=== PATIENT | female | born 2000 | race Caucasian/White ===

== ENCOUNTER 2019-09-12 20:05 | Outpatient (CLI) | payer MEDICAID, SELFPAY ==
[2019-09-12] VITALS (18 sets, daily range): BP systolic 0–146; BP diastolic 0–87; PULSE 78–102; RESP 16–20; TEMP 36.6–36.7; BMI 31.9
[2019-09-12 20:47] LABS: Add Urine Microscopic? NO
[2019-09-12] MEDS: acetaminophen 500 mg Tablet 1000 MG PO (21:03)
[2019-09-12 21:24] LABS: Bilirubin Urine Neg (NEGATIVE); Blood Urine Neg (Negative); Glucose Urine UA Norm (Normal); Ketones Urine Negative (Negative); Leukocyte Esterase Urine Negative (Negative); Nitrate Urine Negative (Negative); Protein Urine Neg (Negative); Specific Gravity, Urine 1.005 (1.005-1.030); Urine Appearance Clear (CLEAR); Urine Color Yellow (Yellow); Urobilinogen Urine Norm (Negative); pH Urine 7 (5-7)
[2019-09-12 22:04] LABS: Urine Creatinine 26 mg/dL (28-217); Urine Protein Random 4 mg/dL
[2019-09-12 22:09] LABS: UPRO/UCREAT Ratio 0.15 mg/mg CR
== END 2019-09-12 22:22 | disposition home or self-care (01) ==
LOC: OPOB 20:24 → OBGYN 22:00 → OPOB 09-13 08:22
PROVIDERS: Family Provider Family Medicine; PCP Family Medicine; Visit Provider Family Medicine
DX: O26.899 Other specified pregnancy related conditions, unspecified trimester (principal); Z3A.00 Weeks of gestation of pregnancy not specified; R51 Headache
CPT/HCPCS: 59025; 81003; 82570; 84156; 99211; A9270

== ENCOUNTER 2019-09-15 17:51 | Outpatient (CLI) | payer MEDICAID, SELFPAY ==
[2019-09-15 18:06] VITALS: BP 142/80; PULSE 88
[2019-09-15 18:09] VITALS: BMI 33.7
[2019-09-15 18:21] VITALS: BP 145/84; PULSE 101
--- NOTE | 2019-09-15 18:25 | PC.NURSE ---
Nurse at bedside at this time. The nurse asked pt about headache. Pt stated head is hurting about a 5 to 6 on 0-10 scale. Nurse palpated pt's abdomen and pt stated it did not hurt with palpation and stated it was hurting right above pubic bone as well. RN asked pt if she was having pain anywhere else and pt stated no. RN updated pt on plan of care.
[2019-09-15 18:30] LABS: Add Urine Microscopic? NO
[2019-09-15 18:35] VITALS: RESP 16; TEMP 36.8
[2019-09-15 18:36] VITALS: BP 130/85; PULSE 91
[2019-09-15 18:36] LABS: Bilirubin Urine Neg (NEGATIVE); Blood Urine Neg (Negative); Glucose Urine UA Norm (Normal); Ketones Urine Negative (Negative); Leukocyte Esterase Urine Negative (Negative); Nitrate Urine Negative (Negative); Protein Urine Neg (Negative); Specific Gravity, Urine 1.005 (1.005-1.030); Urine Appearance Clear (CLEAR); Urine Color Straw (Yellow); Urobilinogen Urine Norm (Negative); pH Urine 7 (5-7)
[2019-09-15 18:45] VITALS: BP 130/85; PULSE 91; RESP 16; TEMP 36.8
[2019-09-15] MEDS: acetaminophen 500 mg Tablet 1000 MG PO (18:49)
== END 2019-09-15 18:50 | disposition home or self-care (01) ==
LOC: OPOB 18:01 → OBGYN 18:45 → OPOB 09-16 07:46
PROVIDERS: Family Provider Family Medicine; PCP Family Medicine; Visit Provider Family Medicine
DX: O16.9 Unspecified maternal hypertension, unspecified trimester (principal); Z3A.00 Weeks of gestation of pregnancy not specified
CPT/HCPCS: 81003; 99211

== ENCOUNTER 2019-09-18 18:35 | Outpatient (CLI) | payer MEDICAID, SELFPAY ==
[2019-09-18 18:55] VITALS: BP 145/78; PULSE 96; TEMP 36.8
[2019-09-18 19:00] VITALS: BMI 32.1
[2019-09-18 19:12] LABS: Nitrazine Paper, PH Inconclusive
[2019-09-18 19:28] LABS: Actim Prom Negative
[2019-09-18 19:34] VITALS: BP 134/75; PULSE 87
[2019-09-18 19:50] VITALS: BP 134/75; PULSE 87; RESP 16; TEMP 36.8
== END 2019-09-18 19:52 | disposition home or self-care (01) ==
LOC: OPOB 18:46 → OBGYN 19:44 → OPOB 09-20 07:40
PROVIDERS: Family Provider Family Medicine; PCP Family Medicine; Visit Provider Family Medicine
DX: O26.899 Other specified pregnancy related conditions, unspecified trimester (principal); Z3A.00 Weeks of gestation of pregnancy not specified; N89.8 Other specified noninflammatory disorders of vagina
CPT/HCPCS: 59025; 83986; 84112; 99211

== ENCOUNTER 2019-10-09 14:13 | Emergency (ER) | payer MEDICAID, SELFPAY ==
[2019-10-09 14:20] VITALS: BMI 33.4
--- NOTE | 2019-10-09 14:20 | ED_ITS ---
Entered by Nettie Espinosa, acting as scribe for JuanPau HPI - Chest Pain General: Chief Complaint: Chest Pain Stated Complaint: cp Time Seen by Provider: 10/09/19 14:19 Source: patient, family and RN notes reviewed Mode of arrival: ambulatory Limitations: no limitations History of Present Illness: HPI narrative: 19 yo female presents to ED from OB floor with complaints of chest pain. The patient states this began about 45 minutes ago (1345). She said it feels like someone hit her in the chest. She said the pain is worse with deep breathing. She said this is the first time this has happened. She said she did experience shortness of breath with the pain. She denies fever and cough. The patient is 38 weeks and this is her first . The pain is not reproducible. She said she quit smoking. She said she has been swelling with and Dr Burrows is her OB. She has had HTN last couple of visits. She has no chronic medical problems and has had no surgeries. MD complaint: chest pain Onset (ago): minute(s) (45 (1345)) Timing of current episode: constant and still present Prior episodes: No Onset: during rest Pain location: substernal Pain radiation: none Severity: moderate Quality: sharp Relieving factors: nothing Exacerbating factors: nothing Context: other () Associated symptoms: Reports dyspnea; Deny abdominal pain, diaphoresis, fever(s), nausea, palpitations, syncope or vomiting Treatment prior to arrival: none Risk Factors: Coronary artery disease risk factors: none Thoracic aortic dissection risk factors: none Pulmonary embolism risk factors: (38 weeks) Related Data: On Oral Contraceptives: No Review of Systems General: Reports: other (negative unless marked) Const: Denies: fever, chills, body aches, fatigue, malaise or diaphoresis Eyes: Denies: change in vision or blurry vision ENMT: Denies: throat pain, painful swallowing, hoarseness, ear pain, ear discharge, Change in hearing or nasal discharge Card: Denies: palpitations, irregular heart rhythm, syncope, pre-syncope or shortness of breath when lying down Resp: Reports: shortness of breath GI: Denies: abdominal pain, nausea, vomiting, vomiting blood, coffee grounds in vomit, diarrhea, constipation, cramping, blood in stool or black tarry stool : Denies: flank pain, painful urination, urinary frequency, urinary urgency, decreased urine ouput, urinary incontinence or blood in urine Musc: Denies: neck pain, back pain, extremity pain, joint pain, joint swelling, joint warmth or joint stiffness Skin/Breast: Denies: rash, skin tenderness or yellow skin Neuro: Denies: headache, numbness in extremities, weakness in extremities, changes in sensation, lack of coordination, difficulty walking, dizziness, vertigo or confusion Endo: Denies: excessive thirst, tired all the time, cold intolerance, excessive sweating, flushing or hot flashes Sanket/Lymph: Denies: easy bruising, easy bleeding, petechiae or enlarged lymph nodes All/Imm: Denies: hives, throat swelling, tongue swelling, facial swelling or acute wheezing PFSH ED PFSH: Social History Smoking and tobacco status: former smoker Physical Exam Const: COMMON NORMALS: no apparent distress, oriented x3, no limitations, healthy appearing and well nourished EXAM LIMITATIONS: no altered mental status GENERAL APPEARANCE: cooperative, well kempt and well developed ORIENTATION/CONSCIOUSNESS: Yes awake HENMT: COMMON NORMALS: normocephalic, head/scalp atraumatic, hearing grossly normal bilaterally, external ears normal, EAC's normal, external nose normal and moist oral mucous membranes HEAD & SCALP: normal to inspection, normocephalic and atraumatic FACE & SINUS: normal facial exam and face symmetric NOSE: external nose normal and nares normal EXTERNAL EAR: Yes external ears normal EXTERNAL AUDITORY CANAL: EAC's normal MOUTH: oral and palatal mucosa normal and tongue normal Eye: COMMON NORMALS: PERRL, EOMs intact bilaterally, conjunctivae normal and no scleral icterus GENERAL EYE: normal appearance of both eyes and normal light reflex CONJUNCTIVA: Yes conjunctivae normal SCLERA: sclerae normal CORNEA: Yes corneas normal PUPIL: Yes PERRL DIRECT OPHTHALMOSCOPY: Yes normal light reflex Neck/C-Spine: COMMON NORMALS: full ROM, no lymphadenopathy, supple, no meningeal signs and no JVD GENERAL: Yes normal visual inspection and Yes trachea midline CERVICAL SPINE: Yes cervical ROM normal Chest: COMMONS NORMALS: inspection of chest normal and palpation of chest normal Resp: COMMON NORMALS: normal respiratory effort, no retractions, no use of accessory muscles and clear to auscultation bilaterally EFFORT & INSPECTION: Yes able to speak in complete sentences AUSCULTATION: clear to auscultation bilaterally Cardio: COMMON NORMALS: no JVD, regular rate, regular rhythm, S1 normal heart sound, S2 normal heart sound, no gallops, no clicks, no murmurs and no rub JUGULAR VENOUS DISTENTION: no JVD RATE: regular rate RHYTHM: regular rhythm HEART SOUNDS: S1 normal and S2 normal GI: COMMON NORMALS: soft to palpation, non-tender, no hepatosplenomegaly and no masses INSPECTION: Yes normal to inspection PALPATION: Yes soft and Yes no hepatosplenomegaly : COMMON NORMALS: Yes no CVA tenderness BLADDER/KIDNEY EXAM: Yes no CVA tenderness Back/Pelvis: COMMON NORMALS: no CVA tenderness, thoracic and lumbar spine normal to inspection, no thoracic nor lumbar tenderness and thoraco-lumbar ROM normal Extremity: COMMON NORMALS: full ROM, normal capillary refill, no joint enlargement and no calf tenderness GENERAL: Yes edema Neuro: COMMON NORMALS: oriented x3, CN's II-XII intact bilaterally, moves all extremities, no focal motor deficits and no sensory deficits noted MENINGEAL SIGNS: Yes no meningeal signs Psych: COMMON NORMALS: mental status grossly normal, thought process normal, cooperative, affect normal, speech normal and activity/motor behavior normal APPEARANCE: Yes well kempt SPEECH: Yes normal speech THOUGHT PROCESS: normal thought process Skin: COMMON NORMALS: no rashes or lesions noted, skin turgor normal, no jaundice, no petechiae and no mottling GENERAL SKIN EXAM: no rashes or lesions noted and turgor normal Course ED course: 1535 -the patient has negative ultrasounds of her legs. This does not exclude a DVT completely. She does have a positive d-dimer and she fails the YEARS protocol. I have discussed with her the risks and benefits of CT scan to evaluate for a pulmonary embolism and after weighing all this information as I have explained to her in layman's terms she agrees to go ahead with this test. Consultations: Consultation #1: Spoke with patient OB Dr Burrows and he is in agreement with course of treatment while keeping the patient in the ER and a dose of Labetalol. Time: 14:30 Vital Signs: Vital signs: Vital Signs Temperature 98.3 F 10/09/19 14:26 Pulse Rate 72 10/09/19 17:25 Respiratory Rate 17 10/09/19 17:25 Blood Pressure 130/86 10/09/19 17:25 Pulse Oximetry 99 10/09/19 17:25 MDM - Chest Pain MDM Narrative: Medical decision making narrative: Deja is a very nice 19-year-old female who comes in complaining of abrupt onset chest pain that is up in the upper part of her chest. During her time here in the ER her symptoms gradually resolved without any specific treatment. Her ultrasound of her legs were negative but her d-dimer was positive. CTA was suboptimal but showed no evidence of significant pulmonary emboli or other lung pathology. The patient showed no sign of preeclampsia/eclampsia or peripartum cardiomyopathy. Patient was seen and evaluated here in the emergency department by Dr. Burrows and he is asked me to discharge her home on labetalol 200 mg twice daily. I had a long discussion with the patient about the suboptimal IV contrast bolus and that if she wanted to be certain that there was no blood clot she would either need a repeat CT or a VQ scan. I informed her in layman's terms without definitively ruling this out this could be a threat to her life as well as her baby's life. After thinking about this for a long time she declined and wanted to go home. She did agree that if her symptoms returned or she became short of breath she would return to the ER. She understood the risk including ultimately or severe permanent disability but she still declined and wanted to be discharged. She was asymptomatic at discharge. The patient had a scheduled follow-up appointment with Dr. Burrows and she plan to keep that or try to see him earlier. She had family with her who stated they would look in on her and if there was any problem they would return here with her to the ER. The patient was warned but again she was welcomed to return. Lab Data: Labs: Lab Results 10/09/19 10/09/19 10/09/19 Range/Units 14:42 14:42 14:42 WBC 8.9 (4.5-13.0) 10^3/ uL RBC 4.54 (4.1-5.3) 10^6/u L Hgb 13.0 (11.5-15.3) g/dL Hct 40.5 (37.0-47.0) % MCV 89.2 (81-99) fL MCH 28.6 (28.0-34.0) pg MCHC 32.1 (30.0-36.0) g/dL RDW 13.4 (12.1-15.1) % Plt Count 244 (130-400) 10^3/c mm MPV 11.5 H (7.4-10.4) fL Neut % (Auto) 77.1 % Lymph % (Auto) 15.8 % [place] % (Auto) 6.1 % Eos % (Auto) 0.7 % Baso % (Auto) 0.1 % Neut # (Auto) 6.9 (1.8-8.0) 10^3/u L Lymph # (Auto) 1.4 L (1.5-6.5) 10^3/u L [place] # (Auto) 0.5 (0.2-0.9) 10^3/u L Eos # (Auto) 0.1 (0.0-0.8) 10^3/u L Baso # (Auto) 0.0 (0.0-0.1) 10^3/u L Nucleated RBC % (a uto) 0 % Nucleated RBCs # 0.0 /100WBC PT 13.20 (10.5-13.3) SECO NDS INR 0.97 (0.8-1.2) APTT 23.8 L (23.9-36.7) SECO NDS D-Dimer 1.14 H (0-0.59) ug/mIFE U Sodium (136-145) mmol/L Potassium (3.5-5.1) mmol/L Chloride (98-107) mmol/L Carbon Dioxide (22-29) mmol/L Anion Gap (5-19) BUN (6-20) mg/dL Creatinine (0.5-0.9) mg/dL GFR Calculation (90-130) mL/min Glucose (65-115) mg/dL Uric Acid (2.4-5.7) mg/dL Calcium (8.5-10.5) mg/dL Magnesium (1.7-2.3) mg/dL Total Bilirubin (0.15-1.2) mg/dL AST (0-32) U/L ALT (0-33) U/L Alkaline Phosphata se (35-105) IU/L Troponin T Baselin e (0-10) ng/mL Troponin T 120 Min [place] (0-10) ng/mL Delta Troponin T (0-10) ABS# NT-Pro-B Natriuret Pep (0-125) pg/mL Total Protein (6.6-8.7) g/dL Albumin (3.5-5.2) g/dL Globulin (1.3-4.6) g/dL Urine Color (Yellow) Urine Appearance (CLEAR) Urine pH (5-7) Ur Specific Gravit y (1.005-1.030) Urine Protein (Negative) Urine Glucose (UA) (Normal) Urine Ketones (Negative) Urine Blood (Negative) Urine Nitrate (Negative) Urine Bilirubin (NEGATIVE) Urine Urobilinogen (Negative) mg/dL Ur Leukocyte Michelle ase (Negative) Urine RBC (0-2) /hpf Urine WBC (0-5) /hpf Ur Squamous Epith Cells (0-5) Urine Bacteria (NONE) Urine Mucus Urine Opiates Scre en (Negative) ng/mL Ur Barbiturates Sc reen (Negative) ng/mL Ur Phencyclidine S crn (Negative) ng/mL Ur Amphetamines Sc reen (Negative) ng/mL U Benzodiazepines Scrn (Negative) ng/mL Urine Cocaine Scre en (Negative) ng/mL U Marijuana (THC) Screen (Negative) ng/mL Influenza Type A A g (Negative) POC Influenza B Ag (Negative) Blood Type O Negative Rho(D) Type Negaive 10/09/19 10/09/19 10/09/19 Range/Units 14:42 14:42 14:42 WBC (4.5-13.0) 10^3/ uL RBC (4.1-5.3) 10^6/u L Hgb (11.5-15.3) g/dL Hct (37.0-47.0) % MCV (81-99) fL MCH (28.0-34.0) pg MCHC (30.0-36.0) g/dL RDW (12.1-15.1) % Plt Count (130-400) 10^3/c mm MPV (7.4-10.4) fL Neut % (Auto) % Lymph % (Auto) % [place] % (Auto) % Eos % (Auto) % Baso % (Auto) % Neut # (Auto) (1.8-8.0) 10^3/u L Lymph # (Auto) (1.5-6.5) 10^3/u L [place] # (Auto) (0.2-0.9) 10^3/u L Eos # (Auto) (0.0-0.8) 10^3/u L Baso # (Auto) (0.0-0.1) 10^3/u L Nucleated RBC % (a uto) % Nucleated RBCs # /100WBC PT (10.5-13.3) SECO NDS INR (0.8-1.2) APTT (23.9-36.7) SECO NDS D-Dimer (0-0.59) ug/mIFE U Sodium 133 L (136-145) mmol/L Potassium 3.9 (3.5-5.1) mmol/L Chloride 101 (98-107) mmol/L Carbon Dioxide 20 L (22-29) mmol/L Anion Gap 15.9 (5-19) BUN 8 (6-20) mg/dL Creatinine 0.6 (0.5-0.9) mg/dL GFR Calculation 127.5 (90-130) mL/min Glucose 122 H (65-115) mg/dL Uric Acid 5.8 H (2.4-5.7) mg/dL Calcium 9.6 (8.5-10.5) mg/dL Magnesium 1.8 (1.7-2.3) mg/dL Total Bilirubin 0.2 (0.15-1.2) mg/dL AST 15 (0-32) U/L ALT 8 (0-33) U/L Alkaline Phosphata se 192 H (35-105) IU/L Troponin T Baselin e 6 (0-10) ng/mL Troponin T 120 Min [place] (0-10) ng/mL Delta Troponin T (0-10) ABS# NT-Pro-B Natriuret Pep 53 (0-125) pg/mL Total Protein 6.6 (6.6-8.7) g/dL Albumin 3.5 (3.5-5.2) g/dL Globulin 3.1 (1.3-4.6) g/dL Urine Color (Yellow) Urine Appearance (CLEAR) Urine pH (5-7) Ur Specific Gravit y (1.005-1.030) Urine Protein (Negative) Urine Glucose (UA) (Normal) Urine Ketones (Negative) Urine Blood (Negative) Urine Nitrate (Negative) Urine Bilirubin (NEGATIVE) Urine Urobilinogen (Negative) mg/dL Ur Leukocyte Michelle ase (Negative) Urine RBC (0-2) /hpf Urine WBC (0-5) /hpf Ur Squamous Epith Cells (0-5) Urine Bacteria (NONE) Urine Mucus Urine Opiates Scre en (Negative) ng/mL Ur Barbiturates Sc reen (Negative) ng/mL Ur Phencyclidine S crn (Negative) ng/mL Ur Amphetamines Sc reen (Negative) ng/mL U Benzodiazepines Scrn (Negative) ng/mL Urine Cocaine Scre en (Negative) ng/mL U Marijuana (THC) Screen (Negative) ng/mL Influenza Type A A g (Negative) POC Influenza B Ag (Negative) Blood Type Rho(D) Type 10/09/19 10/09/19 10/09/19 Range/Units 14:50 14:50 14:50 WBC (4.5-13.0) 10^3/ uL RBC (4.1-5.3) 10^6/u L Hgb (11.5-15.3) g/dL Hct (37.0-47.0) % MCV (81-99) fL MCH (28.0-34.0) pg MCHC (30.0-36.0) g/dL RDW (12.1-15.1) % Plt Count (130-400) 10^3/c mm MPV (7.4-10.4) fL Neut % (Auto) % Lymph % (Auto) % [place] % (Auto) % Eos % (Auto) % Baso % (Auto) % Neut # (Auto) (1.8-8.0) 10^3/u L Lymph # (Auto) (1.5-6.5) 10^3/u L [place] # (Auto) (0.2-0.9) 10^3/u L Eos # (Auto) (0.0-0.8) 10^3/u L Baso # (Auto) (0.0-0.1) 10^3/u L Nucleated RBC % (a uto) % Nucleated RBCs # /100WBC PT (10.5-13.3) SECO NDS INR (0.8-1.2) APTT (23.9-36.7) SECO NDS D-Dimer (0-0.59) ug/mIFE U Sodium (136-145) mmol/L Potassium (3.5-5.1) mmol/L Chloride (98-107) mmol/L Carbon Dioxide (22-29) mmol/L Anion Gap (5-19) BUN (6-20) mg/dL Creatinine (0.5-0.9) mg/dL GFR Calculation (90-130) mL/min Glucose (65-115) mg/dL Uric Acid (2.4-5.7) mg/dL Calcium (8.5-10.5) mg/dL Magnesium (1.7-2.3) mg/dL Total Bilirubin (0.15-1.2) mg/dL AST (0-32) U/L ALT (0-33) U/L Alkaline Phosphata se (35-105) IU/L Troponin T Baselin e (0-10) ng/mL Troponin T 120 Min [place] (0-10) ng/mL Delta Troponin T (0-10) ABS# NT-Pro-B Natriuret Pep (0-125) pg/mL Total Protein (6.6-8.7) g/dL Albumin (3.5-5.2) g/dL Globulin (1.3-4.6) g/dL Urine Color Yellow (Yellow) Urine Appearance Clear (CLEAR) Urine pH 6.0 (5-7) Ur Specific Gravit y 1.025 (1.005-1.030) Urine Protein Trace (Negative) Urine Glucose (UA) Norm (Normal) Urine Ketones 1+ H (Negative) Urine Blood Neg (Negative) Urine Nitrate Negative (Negative) Urine Bilirubin Neg (NEGATIVE) Urine Urobilinogen Norm (Negative) mg/dL Ur Leukocyte Michelle ase Negative (Negative) Urine RBC None (0-2) /hpf Urine WBC 5-10 H (0-5) /hpf Ur Squamous Epith Cells 40-55 H (0-5) Urine Bacteria 1+ H (NONE) Urine Mucus Trace Urine Opiates Scre en Negative (Negative) ng/mL Ur Barbiturates Sc reen Negative (Negative) ng/mL Ur Phencyclidine S crn Negative (Negative) ng/mL Ur Amphetamines Sc reen Negative (Negative) ng/mL U Benzodiazepines Scrn Negative (Negative) ng/mL Urine Cocaine Scre en Negative (Negative) ng/mL U Marijuana (THC) Screen Negative (Negative) ng/mL Influenza Type A A g Negative (Negative) POC Influenza B Ag Negative (Negative) Blood Type Rho(D) Type 10/09/19 Range/Units 16:40 WBC (4.5-13.0) 10^3/ uL RBC (4.1-5.3) 10^6/u L Hgb (11.5-15.3) g/dL Hct (37.0-47.0) % MCV (81-99) fL MCH (28.0-34.0) pg MCHC (30.0-36.0) g/dL RDW (12.1-15.1) % Plt Count (130-400) 10^3/c mm MPV (7.4-10.4) fL Neut % (Auto) % Lymph % (Auto) % [place] % (Auto) % Eos % (Auto) % Baso % (Auto) % Neut # (Auto) (1.8-8.0) 10^3/u L Lymph # (Auto) (1.5-6.5) 10^3/u L [place] # (Auto) (0.2-0.9) 10^3/u L Eos # (Auto) (0.0-0.8) 10^3/u L Baso # (Auto) (0.0-0.1) 10^3/u L Nucleated RBC % (a uto) % Nucleated RBCs # /100WBC PT (10.5-13.3) SECO NDS INR (0.8-1.2) APTT (23.9-36.7) SECO NDS D-Dimer (0-0.59) ug/mIFE U Sodium (136-145) mmol/L Potassium (3.5-5.1) mmol/L Chloride (98-107) mmol/L Carbon Dioxide (22-29) mmol/L Anion Gap (5-19) BUN (6-20) mg/dL Creatinine (0.5-0.9) mg/dL GFR Calculation (90-130) mL/min Glucose (65-115) mg/dL Uric Acid (2.4-5.7) mg/dL Calcium (8.5-10.5) mg/dL Magnesium (1.7-2.3) mg/dL Total Bilirubin (0.15-1.2) mg/dL AST (0-32) U/L ALT (0-33) U/L Alkaline Phosphata se (35-105) IU/L Troponin T Baselin e (0-10) ng/mL Troponin T 120 Min [place] 6.00 (0-10) ng/mL Delta Troponin T 0 (0-10) ABS# NT-Pro-B Natriuret Pep (0-125) pg/mL Total Protein (6.6-8.7) g/dL Albumin (3.5-5.2) g/dL Globulin (1.3-4.6) g/dL Urine Color (Yellow) Urine Appearance (CLEAR) Urine pH (5-7) Ur Specific Gravit y (1.005-1.030) Urine Protein (Negative) Urine Glucose (UA) (Normal) Urine Ketones (Negative) Urine Blood (Negative) Urine Nitrate (Negative) Urine Bilirubin (NEGATIVE) Urine Urobilinogen (Negative) mg/dL Ur Leukocyte Michelle ase (Negative) Urine RBC (0-2) /hpf Urine WBC (0-5) /hpf Ur Squamous Epith Cells (0-5) Urine Bacteria (NONE) Urine Mucus Urine Opiates Scre en (Negative) ng/mL Ur Barbiturates Sc reen (Negative) ng/mL Ur Phencyclidine S crn (Negative) ng/mL Ur Amphetamines Sc reen (Negative) ng/mL U Benzodiazepines Scrn (Negative) ng/mL Urine Cocaine Scre en (Negative) ng/mL U Marijuana (THC) Screen (Negative) ng/mL Influenza Type A A g (Negative) POC Influenza B Ag (Negative) Blood Type Rho(D) Type Imaging Data^: CXR: Radiologist's impression: [address] [address] XRay Report Signed Patient: Kacie Howard #: [id number] : 2000Acct#:[id number] Age/Sex: 19 / FADM Date: 10/09/19 Loc: ERRoom/Bed: Attending Dr: Ordering Provider/Ordering MD: Pau Martinez DO Date of Service: 10/09/19 Procedure(s): XR chest 1V portable [id number] Accession Number(s): [id number] Report Number: [id number] WS: [id number] XR chest 1V portable [id number] REASON FOR EXAM: cough FINDINGS: The heart and mediastinal interfaces normal. The lung burgess are adequately aerated. No pneumonia, pleural effusion, pulmonary edema, no pneumothorax. The hilum and apices normal. Osseous changes are not observed. XR/XR chest 1V portable [id number] IMPRESSION: No active cardiopulmonary disease. Dictated By:Buddy Martínez DO Signed By:Buddy Martínez DOSigned Date/Time:10/09/19 1437 DD/ US: Radiologist's impression: [place] [address] Ultrasound Report Signed Patient: Kacie Howard #: [id number] : 2000Acct#:[id number] Age/Sex: Date: 10/09/19 Loc: ERRoom/Bed: Attending Dr: Ordering Provider/Ordering MD: Pau Martinez DO Date of Service: 10/09/19 Procedure(s): [place] [id number] Accession Number(s): [id number] Report Number: [id number] PROCEDURE INFORMATION: Exam: US Duplex Lower Extremity Veins Exam date and time: 10/09/2019 2:27 PM Age: 19 years old Clinical indication: Swelling (edema) of limb; Lower extremity, bilateral TECHNIQUE: Imaging protocol: Real-time duplex ultrasound of the Lower Extremities with 2-D gonzalez scale, color Doppler flow and spectral waveform analysis with image documentation. Complete exam focused on the bilateral lower extremity veins. COMPARISON: No relevant prior studies available. FINDINGS: Right deep veins: Unremarkable. The common femoral, femoral, proximal profunda femoral, popliteal, posterior tibial and peroneal veins are patent without thrombus. Normal Doppler waveforms. Normal compressibility and/or augmentation response. Right superficial veins: Saphenofemoral junction is patent without thrombus. Left deep veins: Unremarkable. The common femoral, femoral, proximal profunda femoral, popliteal, posterior tibial and peroneal veins are patent without thrombus. Normal Doppler waveforms. Normal compressibility and/or augmentation response. Left superficial veins: Saphenofemoral junction is patent without thrombus. Soft tissues: Unremarkable. US/[place] [id number] IMPRESSION: No sonographic evidence of deep vein thrombosis. Dictated By:Sam Romano MD Signed By:Sam Romano MDSigned Date/Time:10/09/19 1605 DD/ US OB: Radiologist's impression: [address] [address] Ultrasound Report Signed Patient: Kacie Howard #: [id number] : 2000Acct#:[id number] Age/Sex: Date: 10/09/19 Loc: ERRoo/Bed: Attending Dr: Ordering Provider/Ordering MD: Pau Martinez DO Date of Service: 10/09/19 Procedure(s): US OB limited 10763 Accession Number(s): [id number] Report Number: [id number] PROCEDURE INFORMATION: Exam: US , Limited Exam date and time: 10/09/2019 3:11 PM Age: 19 years old Clinical indication: Other: Diffuse abdominal pain; Gestational age or lmp: 38 weeks 2 days; TECHNIQUE: Imaging protocol: Real-time ultrasound of the maternal uterus with image documentation. Exam focused on the clinical indication. COMPARISON: [facility] OB > 14 weeks 06/03/2019 8:39 AM FINDINGS: There is a estrada fetus in vertex presentation. The heart rate was measured at 164 beats per minute. Evaluation for dates and a detailed anatomic survey were not performed on this examination. The placenta is right lateral in location and grade 2. There is an adequate amount of amniotic fluid with the largest pocket measuring 4.9 x 4.1 cm. US/US OB limited [id number] IMPRESSION: Single viable intrauterine gestation in vertex presentation, as above. Recommend continued clinical and ultrasound surveillance, as clinically indicated. Dictated By:Sam Romano MD Signed By:Sam Romano MDSigned Date/Time:10/09/19 1559 DD/ CTA Chest: Radiologist's impression: [address] [place] [address] CT Scan Report Signed Patient: Kacie Howard #: [id number] : 2000Acct#:[id number] Age/Sex: 19 / FADM Date: 10/09/19 Loc: ERRoom/Bed: Attending Dr: Ordering Provider/Ordering MD: Pau Martinez DO Date of Service: 10/09/19 Procedure(s): CT angio chest PE protcl [id number] Accession Number(s): [id number] Report Number: [id number] PROCEDURE INFORMATION: Exam: CT Angiography Chest With Contrast Exam date and time: 10/09/2019 4:01 PM Age: 19 years old Clinical indication: Chest pain; Type not specified; Patient HX: 38 weeks C/O cp w SOB today; Additional info: Cp/sob, positive d-dimer TECHNIQUE: Imaging protocol: Computed tomographic angiography of the chest with intravenous contrast. Axial, coronal and sagittal reformatted images were created and reviewed. 3D rendering: MIP and/or 3D reconstructed images were created by the technologist. Total DLP: 488.27 mGy-cm Radiation optimization: All CT scans at this facility use at least one of these dose optimization techniques: automated exposure control; mA and/or kV adjustment per patient size (includes targeted exams where dose is matched to clinical indication); or iterative reconstruction. Contrast material: VISI 320; Contrast volume: 95 ml; Contrast route: 18G; COMPARISON: CR XR chest 1V portable [id number] 10/09/2019 2:24 PM FINDINGS: Pulmonary arteries: Contrast opacification somewhat suboptimal. No intraluminal filling defect. Aorta: Unremarkable. No aneurysm or dissection. Lungs: Unremarkable. No consolidation. No mass. Pleural space: Unremarkable. No pneumothorax. No pleural effusion. Heart: Unremarkable. No cardiomegaly. No pericardial effusion. Mediastinum: Small hiatal hernia. Lymph nodes: No pathologically enlarged lymph nodes. Bones/joints: No acute osseous abnormality. Soft tissues: Unremarkable. CT/CT angio chest PE protcl [id number] IMPRESSION: 1. Somewhat limited examination without CT evidence of pulmonary embolism. 2. Additional findings, as above. Radiation Dose CTDIVOL = (mGy): DLP = 488.27 (mGy-cm) Dictated By:Sam Romano MD Signed By:Sam Romano MDSigned Date/Time:10/09/19 1644 DD/ EKG Data^: EKG 1: Attestation: I personally reviewed and interpreted this EKG as follows: EKG interpretation date: 10/09/19 EKG interpretation time: 14:43 Interpretation: NSR @ 89, normal axis, normal intervals, no blocks, no acute ST/T wave changes. EKG 2: Attestation: I personally reviewed and interpreted this EKG as follows: EKG interpretation date: 10/09/19 Interpretation: Unchanged from previous. Discharge Plan Discharge Patient Disposition: Home, Self-Care Clinical Impression: Chest pain Qualifiers: Chest pain type: unspecified Qualified Code(s): R07.9 - Chest pain, unspecified Condition: Stable Prescriptions: New labetalol 200 mg tablet 200 mg PO BID Qty: 30 RF: 0 No Action ranitidine HCl 75 mg Tablet 75 mg PO DAILY RF: 0 PNV cmb#95-ferrous fumarate-FA [] 28 mg iron- 800 mcg Tablet 1 tab PO DAILY RF: 0 Discharge Orders: Discharge Order (Routine); Ordered 10/09/19 Ordered By: Pau Martinez Referrals: Leesa Silverio MD [Primary Care Provider] - Ramses Burrows MD [Family Provider] - 1-3 days Discharge Diet: Low Salt Discharge Activity: Increase activity as tolerated Patient Instructions: Chest Pain (ED) Activity Restrictions/Additional Instructions: Please return to the ER immediately for any of the signs or symptoms listed on your discharge instruction sheets, worsening/changing of your symptoms, you are not getting better as quickly as expected, or for ANY other cause or concerns. I have informed you about your suboptimal CT scan which does not definitively rule out pulmonary embolism. I have recommended and offered to repeat this scan or perform a ventilation/perfusion scan to be certain there is no risk of blood clot in your lungs. I have explained to you that a blood clot in your lungs is life-threatening both to you and baby. By leaving without this complete evaluation you put yourself at risk of or severe permanent disability. If you change your mind, your chest pain returns, he becomes short of breath, you faint or nearly faint, or you simply change your mind you are more than welcome to return to the ER for recheck and further evaluation and care. Be certain to take the blood pressure medications as Dr. Burrows has wanted you to take and follow-up with him as scheduled or sooner. Discharge Date/Time: 10/09/19 17:26 Coding Level of Care Code ED Placement Coordinator for Chg Fwd Exam Comprehensive The documentation recorded by the Jesús clark Valerie R, accurately reflects the service I personally performed and the decisions made by me, Pau Martinez
--- NOTE | 2019-10-09 14:24 | USR_ITS ---
PROCEDURE INFORMATION: Exam: US Duplex Lower Extremity Veins Exam date and time: 10/09/2019 2:27 PM Age: 19 years old Clinical indication: Swelling (edema) of limb; Lower extremity, bilateral TECHNIQUE: Imaging protocol: Real-time duplex ultrasound of the Lower Extremities with 2-D gonzalez scale, color Doppler flow and spectral waveform analysis with image documentation. Complete exam focused on the bilateral lower extremity veins. COMPARISON: No relevant prior studies available. FINDINGS: Right deep veins: Unremarkable. The common femoral, femoral, proximal profunda femoral, popliteal, posterior tibial and peroneal veins are patent without thrombus. Normal Doppler waveforms. Normal compressibility and/or augmentation response. Right superficial veins: Saphenofemoral junction is patent without thrombus. Left deep veins: Unremarkable. The common femoral, femoral, proximal profunda femoral, popliteal, posterior tibial and peroneal veins are patent without thrombus. Normal Doppler waveforms. Normal compressibility and/or augmentation response. Left superficial veins: Saphenofemoral junction is patent without thrombus. Soft tissues: Unremarkable. US/CV venous duplex [facility] [id number] IMPRESSION: No sonographic evidence of deep vein thrombosis.
--- NOTE | 2019-10-09 14:25 | XR_ITS ---
WS: [id number] XR chest 1V portable [id number] REASON FOR EXAM: cough FINDINGS: The heart and mediastinal interfaces normal. The lung burgess are adequately aerated. No pneumonia, pleural effusion, pulmonary edema, no pneumotho rax. The hilum and apices normal. Osseous changes are not observed. XR/XR chest 1V portable [id number] IMPRESSION: No active cardiopulmonary disease.
[2019-10-09 14:26] VITALS: BP 155/91; PULSE 98; RESP 20; TEMP 36.8; O2SAT 98
--- NOTE | 2019-10-09 14:26 | ECG_ITS ---
Measurements Intervals [place] Rate: 86 P: 50 [place]: 146 QRS: 34 QRSD: 85 T: 7 QT: 369 QTc: 443 SINUS RHYTHM Compared to ECG 10/29/2016 18:25:26 Sinus arrhythmia no longer present Electronically Signed On 10-09-2019 19:05:18 BATTERY STARTER by Nolan Hannon M.D. [id number]
--- NOTE | 2019-10-09 14:27 | USR_ITS ---
PROCEDURE INFORMATION: Exam: US , Limited Exam date and time: 10/09/2019 3:11 PM Age: 19 years old Clinical indication: Other: Diffuse abdominal pain; Gestational age or lmp: 38 weeks 2 days; TECHNIQUE: Imaging protocol: Real-time ultrasound of the maternal uterus with image documentation. Exam focused on the clinical indication. COMPARISON: [facility] OB > 14 weeks 06/03/2019 8:39 AM FINDINGS: There is a estrada fetus in vertex presentation. The heart rate was measured at 164 beats per minute. Evaluation for dates and a detailed anatomic survey were not performed on this examination. The placenta is right lateral in location and grade 2. There is an adequate amount of amniotic fluid with the largest pocket measuring 4.9 x 4.1 cm. US/ OB limited [id number] IMPRESSION: Single viable intrauterine gestation in vertex presentation, as above. Recommend continued clinical and ultrasound surveillance, as clinically indicated.
[2019-10-09] MEDS: labetalol 5 mg/mL SDV 20mL 10 MG IVP (14:54)
[2019-10-09 14:58] LABS: Basophils % 0.1 %; Eosinophils # 0.1 10^3/uL (0.0-0.8); Eosinophils % 0.7 %; Hematocrit 40.5 % (37.0-47.0); Lymphocytes # 1.4 10^3/uL (1.5-6.5); Lymphocytes % 15.8 %; Mean Corpuscular HGB Conc 32.1 g/dL (30.0-36.0); Mean Corpuscular Hemoglobin 28.6 pg (28.0-34.0); Mean Corpuscular Volume 89.2 fL (81-99); Mean Platelet Volume 11.5 fL (7.4-10.4); Monocytes # 0.5 10^3/uL (0.2-0.9); Monocytes % 6.1 %; Neutrophils # 6.9 10^3/uL (1.8-8.0); Neutrophils % 77.1 %; Nucleated Red Blood Cells % 0 %; Platelet Count 244 10^3/cmm (130-400); Red Blood Count 4.54 10^6/uL (4.1-5.3); Red Cell Distribution Width 13.4 % (12.1-15.1); White Blood Count 8.9 10^3/uL (4.5-13.0)
[2019-10-09 15:04] VITALS: O2SAT 98
[2019-10-09 15:09] LABS: Bilirubin Urine Neg (NEGATIVE); Blood Urine Neg (Negative); Glucose Urine UA Norm (Normal); Ketones Urine 1+ (Negative); Leukocyte Esterase Urine Negative (Negative); Nitrate Urine Negative (Negative); Protein Urine Trace (Negative); Specific Gravity, Urine 1.025 (1.005-1.030); Urine Appearance Clear (CLEAR); Urine Color Yellow (Yellow); Urobilinogen Urine Norm (Negative)
[2019-10-09 15:10] LABS: Add Urine Culture? No; Bacteria Urine 1+; Mucus Urine TRACE; Squamous Epithelial Cell Urine 40-55 (0-5)
[2019-10-09 15:12] LABS: INR 0.97 (0.8-1.2)
[2019-10-09 15:13] LABS: Partial Thromboplastin Time 23.8 SECONDS (23.9-36.7)
[2019-10-09 15:13] LABS: Amphetamines Screen Urine Negative (Negative); Barbiturates Screen Urine Negative (Negative); Benzodiazepines Screen Urine Negative (Negative); Cocaine Screen Urine Negative (Negative); Opiate Screen Urine Negative (Negative); PCP Screen Urine Negative (Negative); THC Screen Urine Negative (Negative)
[2019-10-09 15:16] LABS: D Dimer 1.14 ug/mIFEU (0-0.59)
[2019-10-09 15:19] LABS: Troponin(5th) Baseline 6 ng/mL (0-10)
[2019-10-09 15:28] LABS: Alanine Aminotransferase 8 U/L (0-33); Albumin Level 3.5 g/dL (3.5-5.2); Alkaline Phosphatase 192 IU/L (35-105); Anion Gap 15.9 (5-19); Aspartate Amino Transferase 15 U/L (0-32); Blood Urea Nitrogen 8 mg/dL (6-20); Calcium 9.6 mg/dL (8.5-10.5); Carbon Dioxide 20 mmol/L (22-29); Chloride 101 mmol/L (98-107); Globulin 3.1 g/dL (1.3-4.6); Glomerular Filtration Rate 127.5 mL/min (90-130); Glucose 122 mg/dL (65-115); Magnesium 1.8 mg/dL (1.7-2.3); NT Pro B Type Natriuretic Pept 53 pg/mL (0-125); Potassium 3.9 mmol/L (3.5-5.1); Sodium 133 mmol/L (136-145); Total Bilirubin 0.2 mg/dL (0.15-1.2); Total Protein 6.6 g/dL (6.6-8.7)
--- NOTE | 2019-10-09 15:34 | CTR_ITS ---
PROCEDURE INFORMATION: Exam: CT Angiography Chest With Contrast Exam date and time: 10/09/2019 4:01 PM Age: 19 years old Clinical indication: Chest pain; Type not specified; Patient HX: 38 weeks C/O cp w SOB today; Additional info: Cp/sob, positive d-dimer TECHNIQUE: Imaging protocol: Computed tomographic angiography of the chest with intravenous contrast. Axial, coronal and sagittal reformatted images were created and reviewed. 3D rendering: MIP and/or 3D reconstructed images were created by the technologist. Total DLP: 488.27 mGy-cm Radiation optimization: All CT scans at this facility use at least one of these dose optimization techniques: automated exposure control; mA and/or kV adjustment per patient size (includes targeted exams where dose is matched to clinical indication); or iterative reconstruction. Contrast material: VISI 320; Contrast volume: 95 ml; Contrast route: 18G; COMPARISON: CR XR chest 1V portable [id number] 10/09/2019 2:24 PM FINDINGS: Pulmonary arteries: Contrast opacification somewhat suboptimal. No intraluminal filling defect. Aorta: Unremarkable. No aneurysm or dissection. Lungs: Unremarkable. No consolidation. No mass. Pleural space: Unremarkable. No pneumothorax. No pleural effusion. Heart: Unremarkable. No cardiomegaly. No pericardial effusion. Mediastinum: Small hiatal hernia. Lymph nodes: No pathologically enlarged lymph nodes. Bones/joints: No acute osseous abnormality. Soft tissues: Unremarkable. CT/CT angio chest PE protcl [id number] IMPRESSION: 1. Somewhat limited examination without CT evidence of pulmonary embolism. 2. Additional findings, as above. Radiation Dose CTDIVOL = (mGy): DLP = 488.27 (mGy-cm)
[2019-10-09 15:46] LABS: Influenza A by IFA Negative (Negative); Influenza B by IFA Negative (Negative)
[2019-10-09] MEDS: sodium chloride 0.9% 1,000 ML 100 ML IV (15:48)
[2019-10-09] MEDS: sodium chloride 0.9% 1,000 ML 999 ML IV (15:48)
[2019-10-09] MEDS: iodixanol 320 mg/mL 100mL Btl IV (16:13)
--- NOTE | 2019-10-09 16:26 | ECG_ITS ---
Measurements Intervals [place] Rate: 89 P: 59 NV: 135 QRS: 43 QRSD: 85 T: 17 QT: 343 QTc: 419 SINUS RHYTHM Compared to ECG 10/29/2016 18:25:26 Sinus arrhythmia no longer present Electronically Signed On 10-09-2019 19:07:55 CUSTOMS OFFICER by Nolan Hannon M.D. [id number]
[2019-10-09 16:43] LABS: Uric Acid 5.8 mg/dL (2.4-5.7)
[2019-10-09 17:00] LABS: Troponin 5 2HR Delta 0 ABS# (0-10)
[2019-10-09 17:25] VITALS: BP 130/86; PULSE 72; RESP 17; O2SAT 99
== END 2019-10-09 17:26 | disposition home or self-care (01) ==
PROVIDERS: Emergency Provider Emergency Medicine; Family Provider Family Medicine; PCP Family Medicine
DX: O26.893 Other specified pregnancy related conditions, third trimester (principal); R07.9 Chest pain, unspecified; Z3A.38 38 weeks gestation of pregnancy; Z87.891 Personal history of nicotine dependence
CPT/HCPCS: 12345; 36415; 71045; 71275; 76815; 80053; 80307; 81001; 83735; 83880; 84484; 84550; 85025; 85378; 85610; 85730; 86900; 87040; 87804; 93005; 93970; 96361; 96374; 96375; 99284; A9270; J3490; J7030; Q9967

== ENCOUNTER 2019-10-17 23:15 | Outpatient (CLI) | payer MEDICAID, SELFPAY ==
[2019-10-17 23:15] VITALS: BMI 34.3
[2019-10-18 00:09] VITALS: BP 0/0; BP 137/86; PULSE 87
[2019-10-18 00:10] VITALS: BP 119/70; PULSE 77
[2019-10-18 00:12] VITALS: RESP 16; TEMP 36.7
[2019-10-18 00:31] LABS: Nitrazine Paper, PH Negative
[2019-10-18 00:52] VITALS: BP 128/63; PULSE 75
[2019-10-18 01:04] VITALS: BP 128/63; PULSE 75; RESP 17; TEMP 36.7
== END 2019-10-18 00:55 | disposition home or self-care (01) ==
LOC: OPOB 23:29 → OBGYN 10-18 00:46 → OPOB 10-18 14:17
PROVIDERS: Family Provider Family Medicine; PCP Family Medicine; Visit Provider Family Medicine
DX: O26.899 Other specified pregnancy related conditions, unspecified trimester (principal); Z3A.00 Weeks of gestation of pregnancy not specified; N89.8 Other specified noninflammatory disorders of vagina
CPT/HCPCS: 59025; 83986; 99211

== ENCOUNTER 2019-10-23 16:00 | Inpatient (IN) | payer MEDICAID, SELFPAY ==
[2019-10-22] VITALS (15 sets, daily range): BP systolic 0–146; BP diastolic 0–91; PULSE 76–101; RESP 18; TEMP 36.6–36.7; BMI 33.5
[2019-10-22] MEDS: miSOPROStol 100 mcg tablet 25 MCG VAGINAL (21:39)
[2019-10-22 21:53] LABS: Basophils % 0.2 %; Eosinophils # 0.1 10^3/uL (0.0-0.8); Eosinophils % 1.1 %; Hematocrit 38.6 % (37.0-47.0); Hemoglobin 12.7 g/dL (11.5-15.3); Lymphocytes # 1.6 10^3/uL (1.5-6.5); Mean Corpuscular HGB Conc 32.9 g/dL (30.0-36.0); Mean Corpuscular Hemoglobin 29.4 pg (28.0-34.0); Mean Corpuscular Volume 89.4 fL (81-99); Mean Platelet Volume 12.1 fL (7.4-10.4); Monocytes # 0.8 10^3/uL (0.2-0.9); Monocytes % 7.7 %; Neutrophils # 7.5 10^3/uL (1.8-8.0); Neutrophils % 74.5 %; Nucleated Red Blood Cells % 0 %; Platelet Count 254 10^3/cmm (130-400); Red Blood Count 4.32 10^6/uL (4.1-5.3); Red Cell Distribution Width 13.3 % (12.1-15.1); White Blood Count 10.1 10^3/uL (4.5-13.0)
[2019-10-23] VITALS (83 sets, daily range): BP systolic 0–159; BP diastolic 0–106; PULSE 75–100; RESP 16–18; TEMP 36.7–37
[2019-10-23 00:42] LABS: Amphetamines Screen Urine Negative (Negative); Barbiturates Screen Urine Negative (Negative); Benzodiazepines Screen Urine Negative (Negative); Cocaine Screen Urine Positive (Negative); Opiate Screen Urine Negative (Negative); PCP Screen Urine Negative (Negative); THC Screen Urine Negative (Negative)
[2019-10-23] MEDS: miSOPROStol 100 mcg tablet 25 MCG VAGINAL ×4 (01:57→17:17)
[2019-10-23] MEDS: labetalol 200 mg Tablet PO ×2 (08:43→17:52)
[2019-10-23] MEDS: acetaminophen 325 mg Tablet 650 MG PO (14:39)
[2019-10-23] MEDS: fentaNYL 50 mcg/mL INJ 2mL IV (22:17)
[2019-10-23] MEDS: lactated ringers 1,000 ML 999 ML IV (23:21)
[2019-10-24] VITALS (121 sets, daily range): BP systolic 0–163; BP diastolic 0–109; PULSE 77–122; RESP 16–20; TEMP 36.7–37.8; O2SAT 96–98
--- NOTE | 2019-10-24 01:11 | P.ANESASSM_ITS ---
Pre-Anesthetic Assessment Pre-Anesthetic Assessment: Height/Weight: Height 1.68 m Weight 94.347 kg Temp Pulse Resp BP Pulse Ox 98.6 F 82 18 135/72 97 10/23/19 23:30 10/24/19 01:07 10/23/19 23:30 10/24/19 01:07 10/24/19 01:09 Preop Diagnosis: IUP Proposed Procedure: labor epidural Familial anesthetic complications: denies Was Beta Eleanor taken within 24 hours: Yes Social: Social History: Tobacco (quit) Exam: Pre-Anes Outpt Exam: alert, oriented x 3, clear to auscultation bilaterally and regular rate & rhythm Airway: Submandibular: WNL Cervical ROM: WNL MP: 1 History/ROS: No significant history except as noted Pulmonary: Pulmonary: None reported CV/HEM: CV/HEM: HTN (PIH) : : None reported Hepatic: Hepatic: None reported GI: GI: None reported Metabolic: Metabolic: None reported Musc/skel: Musc/skel: None reported Neuropsych: Neuropsych: None reported Anesthetic Plan: ASA status: 2 Anesthesia: Anesthesia Evaluation Risk of > 500 ml blood loss (7ml/kg in children): No Meds/Allergies Current Medications: Current Medications Generic Name Dose Route Start Last Admin Trade Name Freq PRN Reason Stop Dose Admin Acetaminophen 650 mg 10/22/19 21:02 10/23/19 14:39 Tylenol PO 650 mg Q6H PRN Administration Mild pain or temp > 100.4 Fentanyl 25 - 100 mcg 10/22/19 21:02 10/23/19 22:17 Sublimaze IV 25 mcg Q1H PRN Administration SEVERE PAIN Lactated Ringer's 1,000 mls @ 999 m ls/hr 10/23/19 23:11 10/23/19 23:21 Lactated Ringers IV 999 mls/hr .Q1H1M PRN Administration ANESTHESIA Ropivacaine 200 mg in 100 mls @ 6 mls/hr 10/23/19 23:11 10/24/19 00:56 Naropin Premix EPIDURAL 12 mls/hr .[id number] PRN Administration ANESTHESIA Labetalol HCl 200 mg 10/23/19 09:00 10/23/19 17:52 Trandate PO 200 mg BID BRUCE Administration Misoprostol 25 mcg 10/23/19 06:21 10/23/19 08:43 Cytotec VAGINAL 25 mcg ONCE PRN Administration LABOR INDUCTION PFSH Anesthesia PFSH: Social History Smoking and tobacco status: former smoker Female Reproductive History: : 1 Data Anesthesia CBC & Chem 7: 10/22/19 21:15 Other Labs: Laboratory Results - last 48 hr 10/22/19 10/22/19 21:15 23:00 WBC 10.1 RBC 4.32 Hgb 12.7 Hct 38.6 MCV 89.4 MCH 29.4 MCHC 32.9 RDW 13.3 Plt Count 254 MPV 12.1 H Neut % (Auto) 74.5 Lymph % (Auto) 16.0 [place] % (Auto) 7.7 Eos % (Auto) 1.1 Baso % (Auto) 0.2 Neut # (Auto) 7.5 Lymph # (Auto) 1.6 [place] # (Auto) 0.8 Eos # (Auto) 0.1 Baso # (Auto) 0.0 Nucleated RBC % (auto) 0 Nucleated RBCs # 0.0 Urine Opiates Screen Negative Ur Barbiturates Screen Negative Ur Phencyclidine Scrn Negative Ur Amphetamines Screen Negative U Benzodiazepines Scrn Negative Urine Cocaine Screen Positive H U Marijuana (THC) Screen Negative Cardiac Studies: No Data to Display
--- NOTE | 2019-10-24 01:12 | ANES.PROC ---
Anesthesia Procedures Procedure/Date: 10/24/19 Epidural: Time Out Performed: Yes Consents Signed: Procedure Consent Consent: requested by attending/covering physician Lumbar Level: L3-L4 Epidural position: sitting Epidural procedure: sterile prep of area, 1% lidocaine to numb the area, 18 g needle, negative for paresthesia passed, neg for paresthesia, test dose given, 1.5% xylocaine 1:200k epi (5ml), placed PCEA, no systemic response, sterile dressing applied, L.U.D. no apparent complications and 0.2% Ropiavacaine @ mls/hr (12)
[2019-10-24] MEDS: dextrose 5%-lactated ringers 1,000 ML 125 ML IV ×2 (04:10→12:12)
[2019-10-24] MEDS: acetaminophen 325 mg Tablet 650 MG PO (05:22)
[2019-10-24] MEDS: oxytocin 30 UNIT/500 ML BAG IV (06:53)
[2019-10-24] MEDS: labetalol 200 mg Tablet PO (09:03)
[2019-10-24] MEDS: lidocaine 2% INJ 20 mL INJECTION (11:30)
[2019-10-24] MEDS: miSOPROStol 200 mcg Tablet 800 MCG PR (12:06)
--- NOTE | 2019-10-24 12:45 | P.PCNOB_ITS ---
Delivery Note: Date of delivery: October 24, 2019 This 19-year-old 1 now para 1 female at 40 weeks and 3 days gestation with placed in the hospital for misoprostol cervical ripening for induction purposes. Benefits and risks were discussed with the patient and spouse prior to admission. She was given a total of 5 doses of misoprostol over approximately 24 hours. She finally began having stronger contractions and making cervical change late last night. She dilated complete cervical dilatation after pushing for approximately 1-1/2 hours delivered by spontaneous vaginal delivery healthy, viable male at 1148. Upon delivery of the infant's head in the left occiput anterior position the mouth and nose were suctioned at the perineum prior to delivery of the shoulders. Initially the shoulders were transverse and the left shoulder was grasped and rotated clockwise and the came out easily with that. After further suctioning, the infant was then laid on mother's abdomen for further drying and toweling off. After approximately 1 minute the 's umbilical cord was clamped and then cut by the infant's father. The umbilical cord had 3 blood vessels. The weighed 9 pounds 8 ounces and had Apgars of 8 and 9 at 1 and 5 minutes respectively. There was a midline second-degree episiotomy which extended to the rectum but not into the rectum. Initially, there was a fair amount of uterine atony with continued to bleed in spite of Pitocin intravenously. The patient was given 100 mcg of misoprostol rectally and a vaginal packing was placed. The bleeding then slowed to barely a trickle after that was removed. Estimated blood loss was approximately 416 mL. A layered surgical closure was performed using Vicryl suture for vaginal and perineal repair. A sweep of the vaginal vault with fundal massage found a fair amount of clots that were easily cleared from the cervical area. Presently mother and are doing well. It should be noted that mom's drug screen on admission was positive for cocaine. I suspect this is a false positive test and in not suspicious at all. However, family services has been notified and a verification test has been sent off. Pre-Delivery Course: This patient was followed throughout her course by this physician. Maternal blood type was O- with antibody screen negative. Hepatitis B, hepatitis C, RPR and HIV were negative. Rubella was equivocal and group B strep was negative. The patient's went postdates and discussion was made with the patient and her significant other regarding benefits and risks of misoprostol cervical ripening. They wished to proceed with misoprostol cervical ripening beginning on 10/22/2019. Delivery: Spontaneous vaginal delivery. A&P Assessment and plan (1) Normal spontaneous vaginal delivery: Patient will be watched for bleeding and other issues. Will follow for routine postdelivery care. Status: Acute Code(s): O80 - Encounter for full-term uncomplicated delivery (2) induced hypertension: Patient's blood pressure has been well controlled with labetalol 200 mg twice daily. We will continue that for now but watch for low blood pressures and may discontinue soon. Status: Acute Code(s): O13.9 - Gestational [-induced] hypertension without significant proteinuria, unspecified trimester Coding Level of Care Code Acute Stroke Belt Sander Operator for Chg Fwd Diagnoses Normal spontaneous vaginal delivery O80 induced hypertension O13.9
[2019-10-24] MEDS: benzocaine-menthol 78 gm Canister 1 SPRAY TOPICAL (15:05)
[2019-10-24] MEDS: lanolin oint 7 gm 1 APPLIC TOPICAL (15:06)
--- NOTE | 2019-10-24 18:22 | PC.NURSE ---
Pt up to bathroom, void 150mL, darrick care performed. Pad and gown changed. Pt then ambulated to room 207, oriented to room and call light. Instructed to call for assistance as needed and with next trip to restroom. Proud parent pack discussed.
[2019-10-24] MEDS: docusate sodium 100 mg Capsule PO (22:02)
[2019-10-25 01:15] LABS: Hematocrit 33.3 % (37.0-47.0); Hemoglobin 10.9 g/dL (11.5-15.3); Mean Corpuscular HGB Conc 32.7 g/dL (30.0-36.0); Mean Corpuscular Hemoglobin 29.8 pg (28.0-34.0); Platelet Count 241 10^3/cmm (130-400); Red Blood Count 3.66 10^6/uL (4.1-5.3); Red Cell Distribution Width 13.7 % (12.1-15.1); White Blood Count 13.4 10^3/uL (4.5-13.0)
[2019-10-25 02:00] VITALS: BP 120/82; PULSE 89; RESP 16
[2019-10-25 05:39] VITALS: BP 118/77; PULSE 87; RESP 16; TEMP 36.6
[2019-10-25 05:46] VITALS: BP 118/77; PULSE 87; RESP 16; TEMP 36.6
--- NOTE | 2019-10-25 08:24 | PM.OBGYDC ---
Discharge Providers PRIMARY CARE SALES REPRESENTATIVE Date of Admission: 10/23/19 16:00 Date of Discharge: 10/26/19 Attending Provider at Admission: Ramses Burrows MD Attending Provider at Discharge: Ramses Burrows MD Primary Care Provider: Leesa Silverio MD Diagnoses at Discharge Discharge Diagnosis (1) Normal spontaneous vaginal delivery: Status: Acute Problem details: Patient is doing well status post spontaneous vaginal delivery. She has just mild lochia. She is ambulating well and tolerating a regular diet without problems. The is breast-feeding well. (2) induced hypertension: Status: Acute Problem details: Patient developed some increased edema yesterday as well as borderline blood pressure readings. It was felt prudent to have the patient remain in the hospital for 1 more midnight secondary to risk of preeclampsia. The patient has done well throughout the day and her edema in her legs is improved this morning. Reason for Visit Reason for Visit: Reason For Visit: ob triage Hospital Course Hospital Course: Patient is doing well at this time. She has mild lochia and trace edema in both lower extremities. She is ambulating well and tolerating a regular diet. Her blood pressures have been within normal limits. She is felt to be stable for discharge. It should be noted however that her drug screen on admission was positive for cocaine. I believe this patient is low risk for having used cocaine and feel that this is probably a false positive drug screen. Verification testing is pending and family services has been notified and unless the drug screen comes back today the infant will probably not go home with mom until verification testing is completed. Information Peripartum Data: Infant Delivery Method: Vaginal Physical Exam Const: COMMON NORMALS: no apparent distress, oriented x3 and well nourished GENERAL APPEARANCE: cooperative and comfortable ORIENTATION/CONSCIOUSNESS: Yes awake Chest: COMMONS NORMALS: inspection of chest normal Resp: COMMON NORMALS: normal respiratory effort, no retractions, no use of accessory muscles and clear to auscultation bilaterally AUSCULTATION: clear to auscultation bilaterally Cardio: COMMON NORMALS: regular rate, regular rhythm and no murmurs RATE: regular rate RHYTHM: regular rhythm GI: COMMON NORMALS: normal to inspection, nondistended, normoactive bowel sounds, soft to palpation and non-tender (Fundus is firm.) PALPATION: Yes soft Extremity: COMMON NORMALS: normal to inspection, full ROM and normal capillary refill Neuro: COMMON NORMALS: oriented x3, CN's II-XII intact bilaterally, moves all extremities and no focal motor deficits Psych: COMMON NORMALS: mental status grossly normal and cooperative Urinary Catheter Management^: Awan: Cath Placed During This Visit: yes Urinary Catheter Date of Insertion: 10/24/19 Urinary Catheter Time of Insertion: 01:21 Discharge Data Data Completed and Pending: Pending at discharge Category Date Time Status Miscellaneous Joan t Stat Lab 10/23/19 00:00 Received Labs from last 24 hours 10/25/19 10/25/19 10/22/19 00:41 00:41 21:15 WBC 13.4 H RBC 3.66 L Hgb 10.9 L Hct 33.3 L MCV 91.0 MCH 29.8 MCHC 32.7 RDW 13.7 Plt Count 241 MPV 12.0 H Blood Type O Negative Rho(D) Type Negaive Antibody Screen Negative Screen Negative Cancelled Vitals: Last Vital Signs Temp 97.8 F 10/25/19 05:46 Pulse 87 10/25/19 05:46 Resp 16 10/25/19 05:46 BP 118/77 10/25/19 05:46 Pulse Ox 97 10/24/19 01:24 Discharge Plan Discharge Patient Disposition: Home, Self-Care Condition: Stable Prescriptions: New ibuprofen 800 mg Tablet 800 mg PO TID Qty: 90 RF: 2 docusate sodium 100 mg Capsule 100 mg PO BID Qty: 60 RF: 1 Lanolin (HPA) 100 % Cream 1 applic topical PRN PRN (Reason: Dryness) Qty: 60 RF: 1 Continued ranitidine HCl 75 mg Tablet 75 mg PO DAILY RF: 0 PNV cmb#95-ferrous fumarate-FA [] 28 mg iron- 800 mcg Tablet 1 tab PO DAILY RF: 0 Discontinued labetalol 200 mg tablet 200 mg PO BID Qty: 30 RF: 0 No Action labetalol 200 mg tablet 200 mg PO BID RF: 0 Discharge Orders: Discharge Order (Routine); Ordered 10/26/19 Ordered By: Ramses Burrows Referrals: Ramses Burrows MD [Family Provider] - 12/01/19 3:00 pm Discharge Diet: Regular Discharge Activity: Resume usual activity Patient Instructions: Your Baby (GEN), How to Hold and Breastfeed Your Baby (GEN), and Nipple Soreness (GEN), Vaginal Delivery (GEN), OB Discharge Report, OB Food/Drug Interaction Guide Activity Restrictions/Additional Instructions: Please make patient appointment to follow-up with this physician in 6 weeks. Also follow-up as needed. Discharge Attestations PRIMARY CARE SALES REPRESENTATIVE Time Spent in Discharge Care*: less than 30 min Specific Discharge Activities: Specific discharge activities: educating patient, documenting/other paperwork and evaluating patient/reviewing data Coding Level of Care Code Acute Wire Coiler Machine Operator for g Fwd Exam Comprehensive Diagnoses Normal spontaneous vaginal delivery O80 induced hypertension O13.9
[2019-10-25] MEDS: prenatal vitamin Capsule 1 CAP PO (09:42)
[2019-10-25] MEDS: docusate sodium 100 mg Capsule PO ×2 (09:42→17:08)
[2019-10-25 10:04] VITALS: BP 133/79; PULSE 106; RESP 16; TEMP 36.9
--- NOTE | 2019-10-25 10:13 | USCV_ITS ---
Kacie Howard Age: 19 Gender: F : 2000 Exam Date: 10/25/2019 10:17 Ordering Phys: Ramses Burrows MD Technologist: Carmelo Tracey [place] [facility] [place]: LT LEG SWELLING POST PART 1 DAY HISTORY: Lower extremity swelling. PROCEDURES: Venous duplex imaging was performed in only the left lower extremity. The following venous structures were evaluated: common femoral vein, profunda vein, proximal portion of the greater saphenous vein, superficial femoral vein, and the popliteal vein. In addition, the posterior tibial and peroneal trunk were evaluated. On the left side, the common femoral, superficial femoral, profunda femoral, popliteal, posterior tibial, greater saphenous veins, and the peroneal trunk were identified and interrogated in the standard fashion. These veins were found to be easily compressible with spontaneous blood flow. No evidence of insufficiency or thrombus noted. FINDINGS: Normal 2-D Doppler and augmentation and compressibility throughout the lower extremity venous structures. Additional imaging through the proximal calf veins also reveals no thrombus. Limited evaluation of the greater saphenous vein is patent with no thrombus.. CONCLUSIONS No evidence of left lower extremity DVT. Haroon Li MD (Electronically Signed) Final Date: 25 October 2019 11:50 S
--- NOTE | 2019-10-25 11:25 | ANE.PACU2 ---
 Inpatient post-anesthesia follow up: Airway intact: Yes Vital signs: Temperature 98.5 F Pulse Rate 106 Respiratory Rate 16 Blood Pressure 133/79 Pulse Oximetry 97 Oxygen Delivery Me thod Room Air Oxygen Flow Rate Fraction of Inspir ed Oxygen Nausea and vomiting: No Pain level: 2 Mental status: Baseline Additional Comments: no signs of infection at epidural site, up and walking, urinating since levin removed, no headaches
[2019-10-25 16:01] VITALS: BP 133/78; PULSE 101; RESP 16; TEMP 36.6; O2SAT 98
--- NOTE | 2019-10-25 17:28 | PM.PN ---
Subjective Subjective: Interval history: This patient was scheduled to be discharged today, however she has had increased swelling in her legs. With history of -induced hypertension and other issues it is felt that would be more prudent to observe the patient another day. She is potentially at risk for preeclampsia or eclampsia at this time. She also would benefit from more education regarding breast-feeding. Vitals/I&O/Wt Last Vital Signs Temp 97.9 F 10/25/19 16:01 Pulse 101 H 10/25/19 16:01 Resp 16 10/25/19 16:01 BP 133/78 10/25/19 16:01 Pulse Ox 98 10/25/19 16:01 10/25/19 10/25/19 10/25/19 06:59 14:59 22:59 Intake Total 0 / 2569.667 Balance 0 / 1819.667 Physical Exam Const: COMMON NORMALS: no apparent distress and well nourished Neck/C-Spine: COMMON NORMALS: no JVD Resp: COMMON NORMALS: normal respiratory effort, no retractions, no use of accessory muscles and clear to auscultation bilaterally AUSCULTATION: clear to auscultation bilaterally Cardio: COMMON NORMALS: no JVD, regular rate, regular rhythm, S1 normal heart sound and no murmurs RATE: regular rate RHYTHM: regular rhythm HEART SOUNDS: S1 normal GI: COMMON NORMALS: normal to inspection, nondistended, normoactive bowel sounds, soft to palpation, non-tender, no hepatosplenomegaly and no masses (Fundus remains firm.) PALPATION: Yes soft and Yes no hepatosplenomegaly Extremity: COMMON NORMALS: full ROM and normal capillary refill GENERAL: Yes edema (Bilateral lower legs have pitting edema. Left leg is trace edema. There is no calf tenderness and Homans sign is negative.) Urinary Catheter Management^: Awan: Cath Placed During This Visit: yes Urinary Catheter Date of Insertion: 10/24/19 Urinary Catheter Time of Insertion: 01:21 Data : 10/25/19 00:41 A&P Assessment and plan (1) induced hypertension: With blood pressure being upper limits of normal and increased edema in lower extremities we have made the decision to continue hospitalization at this time for further monitoring. Unless problems arise, I expect her to be able to be discharged tomorrow. Status: Acute Code(s): O13.9 - Gestational [-induced] hypertension without significant proteinuria, unspecified trimester Attestations Medical Necessity Statement*: This patient has had increased problems with borderline hypertension with increased edema. This increases concern for possible preeclampsia . This requires at least 1 more midnight hospital stay. Coding Level of Care Code Acute Collection Systems Foreman for g Fwd Exam Detailed Diagnoses induced hypertension O13.9
[2019-10-25 19:36] LABS: Add Urine Microscopic? YES; Bilirubin Urine Neg (NEGATIVE); Blood Urine 3+ (Negative); Glucose Urine UA Norm (Normal); Ketones Urine Negative (Negative); Leukocyte Esterase Urine Trace (Negative); Nitrate Urine Negative (Negative); Protein Urine Neg (Negative); Urine Appearance Clear (CLEAR); Urine Color Yellow (Yellow); Urobilinogen Urine Norm (Negative)
[2019-10-25 19:37] LABS: Add Urine Culture? Yes; Bacteria Urine 1+; Mucus Urine 2+; RBC Urine 40-50 /hpf (0-2); Squamous Epithelial Cell Urine 0-4 (0-5)
[2019-10-25 21:50] VITALS: BP 145/77; PULSE 82; RESP 17; TEMP 36.6; O2SAT 98
[2019-10-26 04:15] VITALS: BP 108/62; PULSE 88; RESP 16; TEMP 36.7; O2SAT 97
--- NOTE | 2019-10-26 07:25 | PM.OBGYDC ---
Discharge Providers REVERSAL PRINT INSPECTOR Date of Admission: 10/23/19 16:00 Date of Discharge: 10/26/19 Attending Provider at Admission: Ramses Burrows MD Attending Provider at Discharge: Ramses Burrows MD Primary Care Provider: Leesa Silverio MD Diagnoses at Discharge Discharge Diagnosis (1) induced hypertension: Status: Acute Problem details: Patient developed some increased edema yesterday as well as borderline blood pressure readings. It was felt prudent to have the patient remain in the hospital for 1 more midnight secondary to risk of preeclampsia. The patient has done well throughout the day and her edema in her legs is improved this morning. Reason for Visit Reason for Visit: Reason For Visit: ob triage Hospital Course Hospital Course: Patient is doing well at this time. She has mild lochia and trace edema in both lower extremities. She is ambulating well and tolerating a regular diet. Her blood pressures have been within normal limits. She is felt to be stable for discharge. It should be noted however that her drug screen on admission was positive for cocaine. I believe this patient is low risk for having used cocaine and feel that this is probably a false positive drug screen. Verification testing is pending and family services has been notified and unless the drug screen comes back today the infant will probably not go home with mom until verification testing is completed. Information Peripartum Data: Delivery Method: Vaginal Physical Exam Const: COMMON NORMALS: no apparent distress and well nourished Resp: COMMON NORMALS: normal respiratory effort, no retractions, no use of accessory muscles and clear to auscultation bilaterally AUSCULTATION: clear to auscultation bilaterally Cardio: COMMON NORMALS: regular rate, regular rhythm and no murmurs RATE: regular rate RHYTHM: regular rhythm GI: COMMON NORMALS: normal to inspection, nondistended, normoactive bowel sounds, soft to palpation and non-tender (Fundus is firm.) PALPATION: Yes soft Extremity: GENERAL: Yes edema (Just trace edema in both lower extremities. No calf pain and negative Homans sign bilaterally.) Neuro: COMMON NORMALS: moves all extremities, no focal motor deficits and no sensory deficits noted Psych: COMMON NORMALS: mental status grossly normal, thought process normal, cooperative, affect normal and activity/motor behavior normal THOUGHT PROCESS: normal thought process Urinary Catheter Management^: Awan: Cath Placed During This Visit: yes Urinary Catheter Date of Insertion: 10/24/19 Urinary Catheter Time of Insertion: 01:21 Discharge Data Data Completed and Pending: Completed Studies During Hospitalization Category Date Time Status US venous duplex lower extremity LT [CV venous duplex Ultrasound 10/25/19 10:13 [place] [address]] Stat Pending at discharge Category Date Time Status Miscellaneous Joan t Stat Lab 10/23/19 00:00 Received Labs from last 24 hours 10/25/19 19:15 Urine Color Yellow Urine Appearance Clear Urine pH 5.0 Ur Specific Gravit y 1.020 Urine Protein Neg Urine Glucose (UA) Norm Urine Ketones Negative Urine Blood 3+ H Urine Nitrate Negative Urine Bilirubin Neg Urine Urobilinogen Norm Ur Leukocyte Michelle ase Trace H Urine RBC 40-50 H Urine WBC 5-10 H Ur Squamous Epith Cells 0-4 H Urine Bacteria 1+ H Urine Mucus 2+ Vitals: Last Vital Signs Temp 98.1 F 10/26/19 04:15 Pulse 88 10/26/19 04:15 Resp 16 10/26/19 04:15 BP 108/62 10/26/19 04:15 Pulse Ox 97 10/26/19 04:15 Discharge Plan Discharge Patient Disposition: Home, Self-Care Condition: Stable Prescriptions: New ibuprofen 800 mg Tablet 800 mg PO TID Qty: 90 RF: 2 docusate sodium 100 mg Capsule 100 mg PO BID Qty: 60 RF: 1 Lanolin (HPA) 100 % Cream 1 applic topical PRN PRN (Reason: Dryness) Qty: 60 RF: 1 Continued ranitidine HCl 75 mg Tablet 75 mg PO DAILY RF: 0 PNV cmb#95-ferrous fumarate-FA [] 28 mg iron- 800 mcg Tablet 1 tab PO DAILY RF: 0 Discontinued labetalol 200 mg tablet 200 mg PO BID Qty: 30 RF: 0 No Action labetalol 200 mg tablet 200 mg PO BID RF: 0 Discharge Orders: Discharge Order (Routine); Ordered 10/26/19 Ordered By: Ramses Burrows Referrals: Ramses Burrows MD [Family Provider] - 12/01/19 3:00 pm Discharge Diet: Regular Discharge Activity: Resume usual activity Patient Instructions: Your Baby (GEN), How to Hold and Breastfeed Your Baby (GEN), and Nipple Soreness (GEN), Vaginal Delivery (GEN), OB Discharge Report, OB Food/Drug Interaction Guide Activity Restrictions/Additional Instructions: Please make patient appointment to follow-up with this physician in 6 weeks. Also follow-up as needed. Discharge Attestations REVERSAL PRINT INSPECTOR Time Spent in Discharge Care*: less than 30 min Coding Level of Care Code Acute Needle Grinder for Chg Fwd Exam Detailed Diagnoses induced hypertension O13.9
[2019-10-26] MEDS: prenatal vitamin Capsule 1 CAP PO (09:05)
[2019-10-26] MEDS: docusate sodium 100 mg Capsule PO (09:05)
[2019-10-26 09:11] VITALS: BP 126/84; PULSE 102; RESP 16; TEMP 36.6
[2019-10-26 11:40] VITALS: BP 131/79; PULSE 101; RESP 16; TEMP 36.9
[2019-10-26] MEDS: measles,mumps,rubella pf Vial (w/diluent) 0.5 ML SUBCUT (12:41)
[2019-10-26 13:15] VITALS: BP 131/79; PULSE 101; RESP 16; TEMP 36.9
--- NOTE | 2019-10-29 11:45 | PC.NURSE ---
Call to Kezia Green with [facility] to report cocaine confirmation of negative.
== END 2019-10-26 13:39 | disposition home or self-care (01) | DRG 807 ==
LOC: OBGYN 10-24 10:23
PROVIDERS: Admitting Provider Family Medicine; Family Provider Family Medicine; PCP Family Medicine; Visit Provider Family Medicine
DX: O10.92 Unspecified pre-existing hypertension complicating childbirth (principal); Z37.0 Single live birth; Z3A.40 40 weeks gestation of pregnancy; O70.1 Second degree perineal laceration during delivery
CPT/HCPCS: 12345; 36415; 36430; 51702; 59409; 80305; 80306; 81001; 85025; 85027; 85460; 86850; 86900; 90384; 90707; 93971; 96372; 96374; 96375; J2001; J2795; J3010

== ENCOUNTER 2019-11-27 15:21 | Emergency (ER) | payer MEDICAID, SELFPAY ==
[2019-11-27 15:35] VITALS: PULSE 80; RESP 16; TEMP 36.8; O2SAT 98; BMI 24.2
--- NOTE | 2019-11-27 16:00 | ED_ITS ---
Documented by User: Jeannie Alex 11/27/19 17:19 HPI - General: Chief complaint: Vaginal Bleeding Stated complaint: bleeding post Time Seen by Provider: 11/27/19 15:25 Source: patient Mode of arrival: ambulatory Limitations: no limitations History of Present Illness: HPI Narrative: 5 weeks post ; bleeding with large clots Complaint: vaginal bleeding Onset (ago): day(s) (2) Patient : No OB History - Current : no complications Associated symptoms: Reports no associated symptoms Review of Systems General: Reports: 10 or more systems reviewed and unremarkable except in HPI and below : Reports: vaginal bleeding PFSH ED PFSH: Social History Smoking and tobacco status: never smoked Physical Exam Const: COMMON NORMALS: no apparent distress, oriented x3, no limitations and alert GENERAL APPEARANCE: cooperative and comfortable ORIENTATION/CONSCIOUSNESS: Yes awake, Yes oriented to person, Yes oriented to place and Yes oriented to time HENMT: COMMON NORMALS: normocephalic, head/scalp atraumatic, external ears normal, EAC's normal, TM's normal bilaterally and external nose normal HEAD & SCALP: normal to inspection, normocephalic and atraumatic FACE & SINUS: normal facial exam, sinuses nontender and face symmetric NOSE: external nose normal, nares normal and no nasal discharge EXTERNAL EAR: Yes external ears normal EXTERNAL AUDITORY CANAL: EAC's normal TYMPANIC MEMBRANE: TM's normal bilaterally MOUTH: oral and palatal mucosa normal, lip normal and tongue normal THROAT: posterior oropharynx normal, tonsils normal and uvula midline Eye: COMMON NORMALS: PERRL, EOMs intact bilaterally and conjunctivae normal GENERAL EYE: normal appearance of both eyes and normal light reflex EYELID: eyelids normal CONJUNCTIVA: Yes conjunctivae normal PUPIL: Yes PERRL EOM: Yes EOM abnormal DIRECT OPHTHALMOSCOPY: Yes normal light reflex Neck/C-Spine: COMMON NORMALS: full ROM, no lymphadenopathy, supple, no meningeal signs, no JVD and thyroid normal GENERAL: Yes normal visual inspection THYROID: thyroid normal CERVICAL SPINE: Yes cervical ROM normal and Yes normal cervical lordosis Lymph: LYMPHATIC: no lymphadenopathy noted Chest: COMMONS NORMALS: inspection of chest normal and palpation of chest normal Resp: COMMON NORMALS: normal respiratory effort, no retractions and clear to auscultation bilaterally AUSCULTATION: clear to auscultation bilaterally Cardio: COMMON NORMALS: no JVD, regular rate, regular rhythm, S1 normal heart sound, S2 normal heart sound, no gallops, no clicks, no murmurs, no rub and peripheral pulses 2+ throughout RATE: regular rate RHYTHM: regular rhythm HEART SOUNDS: S1 normal and S2 normal PERIPHERAL PULSES: pulses 2+ throughout GI: COMMON NORMALS: normal to inspection, nondistended, normoactive bowel sounds, soft to palpation, non-tender and no masses PALPATION: Yes soft : COMMON NORMALS: Yes no CVA tenderness and Yes external appearance normal BLADDER/KIDNEY EXAM: Yes no CVA tenderness EXTERNAL FEMALE EXAM: Yes normal appearance of the urethra SPECULUM EXAM - VAGINA: Yes vaginal discharge Vaginal discharge present: bloody SPECULUM EXAM - CERVIX: Yes cervical os closed and Yes cervical bleeding Back/Pelvis: COMMON NORMALS: no CVA tenderness, thoracic and lumbar spine normal to inspection, no thoracic nor lumbar tenderness and thoraco-lumbar ROM normal Extremity: COMMON NORMALS: normal to inspection, full ROM, normal capillary refill, no joint enlargement, no clubbing, cyanosis or edema, no calf tenderness and no pedal edema GENERAL: Yes normal exam except as noted Neuro: COMMON NORMALS: oriented x3, moves all extremities, no focal motor deficits, no sensory deficits noted and gait normal SENSORIUM/ORIENTATION: Ye s alert, Yes oriented to person, Yes oriented to place and Yes oriented to time MENINGEAL SIGNS: Yes no meningeal signs Psych: COMMON NORMALS: mental status grossly normal, thought process normal, cooperative, affect normal, speech normal and activity/motor behavior normal SPEECH: Yes normal speech THOUGHT PROCESS: normal thought process Skin: COMMON NORMALS: no rashes or lesions noted, no wounds and skin turgor normal GENERAL SKIN EXAM: no rashes or lesions noted and turgor normal Course ED course: Pt states she is bleeding large clots 5 weeks PP. Denies fever but states she has had chills. Will do labs and pelvic to rule out infection Reevaluation(s): Reevaluation #1: Awaiting UA and orthos. Report given to Henry Byrd NP at shift change. Time: 17:17 Vital Signs: Vital signs: Vital Signs Temperature 98.3 F 11/27/19 15:35 Pulse Rate 80 11/27/19 15:35 Respiratory Rate 16 11/27/19 15:35 Pulse Oximetry 98 11/27/19 15:35 MDM - OB/Uterine Contractions Lab Data: Labs: Lab Results 11/27/19 11/27/19 Range/Units 16:25 16:56 WBC 6.1 (4.5-13.0) 10^3/ uL RBC 4.64 (4.1-5.3) 10^6/u L Hgb 13.0 (11.5-15.3) g/dL Hct 40.3 (37.0-47.0) % MCV 86.9 (81-99) fL MCH 28.0 (28.0-34.0) pg MCHC 32.3 (30.0-36.0) g/dL RDW 12.3 (12.1-15.1) % Plt Count 283 (130-400) 10^3/c mm MPV 9.7 (7.4-10.4) fL Neut % (Auto) 61.8 % Lymph % (Auto) 27.0 % [place] % (Auto) 7.0 % Eos % (Auto) 3.7 % Baso % (Auto) 0.3 % Neut # (Auto) 3.8 (1.8-8.0) 10^3/u L Lymph # (Auto) 1.7 (1.5-6.5) 10^3/u L [place] # (Auto) 0.4 (0.2-0.9) 10^3/u L Eos # (Auto) 0.2 (0.0-0.8) 10^3/u L Baso # (Auto) 0.0 (0.0-0.1) 10^3/u L Nucleated RBC % (a uto) 0 % Nucleated RBCs # 0.0 /100WBC Urine Color Yellow (Yellow) Urine Appearance Sl cloudy A (CLEAR) Urine pH 6.5 (5-7) Ur Specific Gravit y 1.005 (1.005-1.030) Urine Protein Neg (Negative) Urine Glucose (UA) Norm (Normal) Urine Ketones Negative (Negative) Urine Blood 3+ H (Negative) Urine Nitrate Negative (Negative) Urine Bilirubin Neg (NEGATIVE) Urine Urobilinogen Norm (Negative) mg/dL Ur Leukocyte Michelle ase Negative (Negative) Urine RBC >100 H (0-2) /hpf Urine WBC 0-4 H (0-5) /hpf Ur Squamous Epith Cells 0-4 H (0-5) Urine Bacteria Trace (NONE) Discharge Plan Discharge Patient Disposition: Home, Self-Care Clinical Impression: Vaginal bleeding Condition: Stable Prescriptions: No Action ibuprofen 800 mg Tablet 800 mg PO TID Qty: 90 RF: 2 docusate sodium 100 mg Capsule 100 mg PO BID Qty: 60 RF: 1 PNV cmb#95-ferrous fumarate-FA [] 28 mg iron- 800 mcg Tablet 1 tab PO DAILY RF: 0 Discharge Orders: Discharge Order (Routine); Ordered 11/27/19 Ordered By: Ravinder Byrd Referrals: Leesa Silverio MD [Primary Care Provider] - Ramses Burrows MD [Family Provider] - Discharge Diet: Usual diet Discharge Activity: Increase activity as tolerated Patient Instructions: Menstruation (ED) Activity Restrictions/Additional Instructions: Drink plenty of fluids. Use ibuprofen and Tylenol as needed for pain. Monitor for fever. Return to the ER for high fever or bleeding greater than 1 pad in 30 minutes. Follow-up with primary care in 1 week. Coding Level of Care Code ED Marketing Strategist for Chg Fwd Exam Comprehensive Documented by User: BULMARO Cheung 11/27/19 17:59 HPI - General: Chief complaint: Vaginal Bleeding Stated complaint: bleeding post Time Seen by Provider: 11/27/19 15:25 [facility] ED PFSH: Social History Smoking and tobacco status: never smoked Course Reevaluation(s): Reevaluation #1: 1937, received patient from Blank Alex NP. Patient had come into the emergency room due to vaginal bleeding. She has been having 1 pad per hour of bleeding. Ms. Alex had done a pelvic exam and noted mild to moderate bleeding. Patient is 5-week post delivery. We are awaiting urinalysis and wet prep. Hemoglobin hematocrit were normal. Expect patient to be discharged home with instructions for follow-up. Vital Signs: Vital signs: Vital Signs Temperature 98.3 F 11/27/19 15:35 Pulse Rate 80 11/27/19 15:35 Respiratory Rate 16 11/27/19 15:35 Pulse Oximetry 98 11/27/19 15:35 MDM - OB/Uterine Contractions MDM Narrative: Medical decision making narrative: Patient comes in today for complaints of vaginal bleeding. Patient states that this period was worse than her routine normal periods that she had prior to her . Patient has delivered and this is her first. Since her delivery. Exam noted no significant abnormalities. Patient did have some mild to moderate bleeding. Vital signs were normal. Urinalysis and wet prep were both negative for abnormalities. Except for a large amount of blood. Reviewed with patient recommended treatment for administration. And recommended follow-up as needed. Patient reported understanding agreed to plan. This patient was assumed care from Blank Yen who had pretty well completed the full exam and we were just waiting on a UA and a wet prep which were noticeable for large amount of red blood cells in the urine and otherwise normal wet prep. Lab Data: Labs: Lab Results 11/27/19 11/27/19 Range/Units 16:25 16:56 WBC 6.1 (4.5-13.0) 10^3/ uL RBC 4.64 (4.1-5.3) 10^6/u L Hgb 13.0 (11.5-15.3) g/dL Hct 40.3 (37.0-47.0) % MCV 86.9 (81-99) fL MCH 28.0 (28.0-34.0) pg MCHC 32.3 (30.0-36.0) g/dL RDW 12.3 (12.1-15.1) % Plt Count 283 (130-400) 10^3/c mm MPV 9.7 (7.4-10.4) fL Neut % (Auto) 61.8 % Lymph % (Auto) 27.0 % [place] % (Auto) 7.0 % Eos % (Auto) 3.7 % Baso % (Auto) 0.3 % Neut # (Auto) 3.8 (1.8-8.0) 10^3/u L Lymph # (Auto) 1.7 (1.5-6.5) 10^3/u L [place] # (Auto) 0.4 (0.2-0.9) 10^3/u L Eos # (Auto) 0.2 (0.0-0.8) 10^3/u L Baso # (Auto) 0.0 (0.0-0.1) 10^3/u L Nucleated RBC % (a uto) 0 % Nucleated RBCs # 0.0 /100WBC Urine Color Yellow (Yellow) Urine Appearance Sl cloudy A (CLEAR) Urine pH 6.5 (5-7) Ur Specific Gravit y 1.005 (1.005-1.030) Urine Protein Neg (Negative) Urine Glucose (UA) Norm (Normal) Urine Ketones Negative (Negative) Urine Blood 3+ H (Negative) Urine Nitrate Negative (Negative) Urine Bilirubin Neg (NEGATIVE) Urine Urobilinogen Norm (Negative) mg/dL Ur Leukocyte Michelle ase Negative (Negative) Urine RBC >100 H (0-2) /hpf Urine WBC 0-4 H (0-5) /hpf Ur Squamous Epith Cells 0-4 H (0-5) Urine Bacteria Trace (NONE) Discharge Plan Discharge Patient Disposition: Home, Self-Care Clinical Impression: Vaginal bleeding Condition: Stable Prescriptions: No Action ibuprofen 800 mg Tablet 800 mg PO TID Qty: 90 RF: 2 docusate sodium 100 mg Capsule 100 mg PO BID Qty: 60 RF: 1 PNV cmb#95-ferrous fumarate-FA [] 28 mg iron- 800 mcg Tablet 1 tab PO DAILY RF: 0 Discharge Orders: Discharge Order (Routine); Ordered 11/27/19 Ordered By: Ravinder Byrd Referrals: Leesa Silverio MD [Primary Care Provider] - Ramses Burrows MD [Family Provider] - Discharge Diet: Usual diet Discharge Activity: Increase activity as tolerated Patient Instructions: Menstruation (ED) Activity Restrictions/Additional Instructions: Drink plenty of fluids. Use ibuprofen and Tylenol as needed for pain. Monitor for fever. Return to the ER for high fever or bleeding greater than 1 pad in 30 minutes. Follow-up with primary care in 1 week. Coding Level of Care Code ED Marketing Strategist for Chg Fwd Exam Comprehensive
[2019-11-27 16:34] LABS: Basophils % 0.3 %; Eosinophils # 0.2 10^3/uL (0.0-0.8); Eosinophils % 3.7 %; Hematocrit 40.3 % (37.0-47.0); Lymphocytes # 1.7 10^3/uL (1.5-6.5); Mean Corpuscular HGB Conc 32.3 g/dL (30.0-36.0); Mean Corpuscular Volume 86.9 fL (81-99); Mean Platelet Volume 9.7 fL (7.4-10.4); Monocytes # 0.4 10^3/uL (0.2-0.9); Neutrophils # 3.8 10^3/uL (1.8-8.0); Neutrophils % 61.8 %; Nucleated Red Blood Cells % 0 %; Platelet Count 283 10^3/cmm (130-400); Red Blood Count 4.64 10^6/uL (4.1-5.3); Red Cell Distribution Width 12.3 % (12.1-15.1); White Blood Count 6.1 10^3/uL (4.5-13.0)
[2019-11-27 17:44] LABS: Urine Color Yellow (Yellow)
[2019-11-27 17:45] LABS: Add Urine Microscopic? YES; Bacteria Urine TRACE; Bilirubin Urine Neg (NEGATIVE); Blood Urine 3+ (Negative); Glucose Urine UA Norm (Normal); Ketones Urine Negative (Negative); Leukocyte Esterase Urine Negative (Negative); Nitrate Urine Negative (Negative); Protein Urine Neg (Negative); RBC Urine >100 /hpf (0-2); Specific Gravity, Urine 1.005 (1.005-1.030); Squamous Epithelial Cell Urine 0-4 (0-5); Urobilinogen Urine Norm (Negative); WBC Urine 0-4 /hpf (0-5); pH Urine 6.5 (5-7)
[2019-11-27 17:46] LABS: Add Urine Culture? Yes
[2019-11-27 18:07] VITALS: BP 122/78; PULSE 70; RESP 16; O2SAT 99
== END 2019-11-27 18:07 | disposition home or self-care (01) ==
PROVIDERS: Nurse Practitioner Family; Emergency Provider Nurse Practitioner Family; Family Provider Family Medicine; PCP Family Medicine
DX: N93.9 Abnormal uterine and vaginal bleeding, unspecified (principal)
CPT/HCPCS: 12345; 81001; 85025; 87070; 87086; 87210; 87491; 87591; 87661; 99283; E0352

== ENCOUNTER → 2020-07-26 07:07 | Day surgery (SDC) | payer MEDICAID, SELFPAY ==
[2020-07-26 07:38] VITALS: BP 136/85; PULSE 93; RESP 18; TEMP 37; O2SAT 98
[2020-07-26 09:30] VITALS: BMI 34.2
[2020-07-26 09:41] VITALS: BP 128/89; PULSE 96; RESP 18; TEMP 36.8; O2SAT 99
== END ==
PROVIDERS: PCP Family Medicine; Visit Provider Family Medicine
DX: O26.899 Other specified pregnancy related conditions, unspecified trimester (principal); Z31.82 Encounter for Rh incompatibility status; Z67.91 Unspecified blood type, Rh negative; Z3A.00 Weeks of gestation of pregnancy not specified
CPT/HCPCS: 36415; 36430; 86850; 86900; 90384; 96372

== ENCOUNTER 2020-09-09 13:08 | Outpatient (CLI) | payer BC, SELFPAY ==
[2020-09-09] VITALS (7 sets, daily range): BP systolic 118–153; BP diastolic 69–93; PULSE 103–123; RESP 18; BMI 35.5
[2020-09-09 14:12] LABS: Urine Appearance Clear (CLEAR); Urine Color Straw (Yellow)
[2020-09-09 14:13] LABS: Add Urine Culture? No; Bacteria Urine TRACE /hpf; Bilirubin Urine Neg (Negative); Blood Urine Neg (Negative); Glucose Urine UA Norm (Normal); Ketones Urine Negative (Negative); Leukocyte Esterase Urine Negative (Negative); Nitrate Urine Negative (Negative); Protein Urine Neg (Negative); Squamous Epithelial Cell Urine 0-4 /hpf (0-5); Urobilinogen Urine Norm (Negative); pH Urine 6.5 (5-7)
[2020-09-09 14:30] LABS: Urine Creatinine 34 mg/dL (28-217); Urine Protein Random 9 mg/dL
[2020-09-09 14:31] LABS: UPRO/UCREAT Ratio 0.26 mg/mg CR
== END 2020-09-09 15:05 | disposition home or self-care (01) ==
LOC: OPOB 13:12 → OBGYN 13:13
PROVIDERS: PCP Family Medicine; Visit Provider Family Medicine
DX: O16.9 Unspecified maternal hypertension, unspecified trimester (principal); Z3A.00 Weeks of gestation of pregnancy not specified
CPT/HCPCS: 81001; 82570; 84156; 99211

== ENCOUNTER 2020-10-07 19:55 | Inpatient (IN) | payer BC, MEDICAID, SELFPAY ==
[2020-10-07] VITALS (8 sets, daily range): BP systolic 121–137; BP diastolic 70–83; PULSE 91–118; RESP 18; TEMP 36.6; O2SAT 97–98; BMI 36.3
[2020-10-07] MEDS: miSOPROStol 100 mcg tablet 25 MCG VAGINAL (20:45)
[2020-10-07 20:49] LABS: Basophils % 0.1 %; Eosinophils # 0.1 10^3/uL (0.0-0.8); Eosinophils % 0.7 %; Hematocrit 37.8 % (37.0-47.0); Hemoglobin 12.5 g/dL (11.5-15.3); Lymphocytes # 0.8 10^3/uL (0.8-4.8); Lymphocytes % 9.2 %; Mean Corpuscular HGB Conc 33.1 g/dL (30.0-36.0); Mean Corpuscular Hemoglobin 28.2 pg (28.0-34.0); Mean Corpuscular Volume 85.3 fL (81-99); Mean Platelet Volume 10.7 fL (7.4-10.4); Monocytes # 0.6 10^3/uL (0.2-0.9); Monocytes % 6.6 %; Neutrophils # 7.27 10^3/uL (1.8-7.7); Neutrophils % 83.1 %; Nucleated Red Blood Cells % 0 %; Platelet Count 244 10^3/cmm (130-400); Red Blood Count 4.43 10^6/uL (4.1-5.3); Red Cell Distribution Width 14.3 % (12.1-15.1); White Blood Count 8.8 10^3/uL (4.0-10.0)
[2020-10-08] VITALS (43 sets, daily range): BP systolic 114–146; BP diastolic 58–95; PULSE 81–184; RESP 17–18; TEMP 36.7–37.5; O2SAT 97–99
[2020-10-08] MEDS: acetaminophen 325 mg Tablet 650 MG PO (00:50)
[2020-10-08] MEDS: miSOPROStol 100 mcg tablet 25 MCG VAGINAL (00:51)
[2020-10-08] MEDS: lactated ringers 1,000 ML 999 ML IV (13:26)
--- NOTE | 2020-10-08 14:55 | P.ANESASSM_ITS ---
Pre-Anesthetic Assessment Pre-Anesthetic Assessment: Height/Weight: Height 1.68 m Weight 102.058 kg Temp Pulse Resp BP Pulse Ox 98.6 F 184 H 18 133/88 98 10/08/20 07:08 10/08/20 14:43 10/08/20 05:53 10/08/20 14:43 10/07/20 20:30 Preop Diagnosis: IUP Proposed Procedure: epidural Was Beta Eleanor taken within 24 hours: N/A Social: Social History: Tobacco (history) and No alcohol Exam: Pre-Anes Outpt Exam: alert, oriented x 3, clear to auscultation bilaterally and regular rate & rhythm Airway: Submandibular: WNL Cervical ROM: WNL MP: 2 Dentition: Full Pulmonary: Pulmonary: None reported CV/HEM: CV/HEM: None reported : : None reported Hepatic: Hepatic: None reported GI: GI: None reported Metabolic: Metabolic: None reported Musc/skel: Musc/skel: None reported Neuropsych: Neuropsych: None reported Anesthetic Plan: ASA status: 2 Anesthesia: Regional (specify below) Risk of > 500 ml blood loss (7ml/kg in children): No Meds/Allergies Current Medications: Current Medications Generic Name Dose Route Start Last Admin Trade Name Freq PRN Reason Stop Dose Admin Acetaminophen 650 mg 10/07/20 20:05 10/08/20 00:50 Acetaminophen 32 5 Mg Tablet PO 650 mg Q6H PRN Administration MILD TO MODERATE PAIN Lactated Ringer's 1,000 mls @ 125 m ls/hr 10/07/20 20:15 10/08/20 13:21 Lactated Ringers IV Not Given .Q8H BRUCE Lactated Ringer's 1,000 mls @ 999 m ls/hr 10/08/20 13:03 10/08/20 13:26 Lactated Ringers IV 999 mls/hr .Q1H1M PRN Administration See label comment s PFSH Anesthesia PFSH: Social History Smoking and tobacco status: never smoked Female Reproductive History: : 2 Data Anesthesia CBC & Chem 7: 10/07/20 20:30 Other Labs: Laboratory Results - last 48 hr 10/07/20 20:30 WBC 8.8 RBC 4.43 Hgb 12.5 Hct 37.8 MCV 85.3 MCH 28.2 MCHC 33.1 RDW 14.3 Plt Count 244 MPV 10.7 H Neut % (Auto) 83.1 Lymph % (Auto) 9.2 [place] % (Auto) 6.6 Eos % (Auto) 0.7 Baso % (Auto) 0.1 Neut # (Auto) 7.27 Lymph # (Auto) 0.8 [place] # (Auto) 0.6 Eos # (Auto) 0.1 Baso # (Auto) 0.0 Nucleated RBC % (auto) 0 Nucleated RBCs # 0.0 Cardiac Studies: No Data to Display
--- NOTE | 2020-10-08 14:57 | P.ANES_ITS ---
Anesthesia Procedures Procedure/Date: 10/08/20 epidural Procedure Narrative: epidural complete, bolus given, epidural pump initiated with [employer]OCIATE education given, vitals taken during procedure using OBIX system and satisfactory throughout, patient admits to decrease pain, report of procedure to OB RN Epidural: Time Out Performed: Yes Consents Signed: Procedure Consent Consent: requested by attending/covering physician, from patient, risks and benefits reviewed and patient agrees to proceed Lumbar Level: L3-L4 Epidural position: laying on side Epidural procedure: sterile prep of area, 1% lidocaine to numb the area (3 mL), 18 g needle, negative for paresthesia pass ed, neg for paresthesia, test dose given, 1.5% xylocaine 1:200k epi (5 mL), 0.2% Ropivacaine bolus ml (5 mL), placed PCEA, no systemic response, sterile dressing applied, L.U.D. no apparent complications and 0.2% Ropiavacaine @ mls/hr (13 mL/hr)
[2020-10-08] MEDS: oxytocin 30 UNIT/500 ML BAG 600 UNIT IV (15:37)
--- NOTE | 2020-10-08 16:09 | PM.DELIVERY ---
Delivery Note: Date of delivery: October 08, 2020 this 20-year-old 2 now para 2 female at 40 weeks and 3 days gestation was admitted for induction using misoprostol for cervical ripening. She was given a total of 3 doses of misoprostol 25 mcg. She went into active labor and slowly dilated throughout the night and fulfillment specialist hours and went to complete cervical dilatation at approximately 1450. She began pushing and was able to deliver by spontaneous vaginal livery healthy, viable male infant at 1531. The weighed 9 pounds 3 ounces. There was a mild shoulder dystocia which resolved quickly with suprapubic pressure and grasping the right shoulder and rotating the infant. Apgars were 8 and 9 at 1 and 5 minutes respectively. The infant weighed 9 pounds 3 ounces or 4175 g. Infant had some mild grunting and tachycardia shortly after but that resolved quickly. There was a second-degree midline episiotomy. This was closed with Vicryl suture using layered surgical closure. There were no complications. Estimated blood loss 218 mL. Pre-Delivery Course: This patient was followed by this physician throughout her course without problems except a previous history of a large infant. Maternal blood type was O- with negative antibody screen. He did receive RhoGam at approximately 28 weeks gestation. Maternal hepatitis B, hepatitis C, RPR and HIV were all negative. Rubella was immune and group B strep was negative as was Covid. After explanation of benefits and risks, the patient decided to proceed with misoprostol for cervical ripening yesterday evening. Delivery: Vaginal delivery. Post-Delivery Status: Patient is doing well and will be followed for routine care. A&P Assessment and plan (1) Normal spontaneous vaginal delivery: Patient is doing well with mild blood loss. She will be followed for routine care and adjust orders as necessary. Status: Acute Coding Level of Care Code Acute Payment Processor for Jason Knapp Diagnoses Normal spontaneous vaginal delivery O80
[2020-10-08] MEDS: docusate sodium 100 mg Capsule PO (20:09)
[2020-10-08] MEDS: ibuprofen 800 mg tablet PO (20:09)
[2020-10-08] MEDS: HYDROcodone-acetaminophen 5-325 mg Tablet PO (21:23)
[2020-10-09] VITALS (7 sets, daily range): BP systolic 120–131; BP diastolic 61–78; PULSE 98–114; RESP 16; TEMP 36.6–37.4; O2SAT 98
[2020-10-09 03:04] LABS: Hematocrit 32.1 % (37.0-47.0); Hemoglobin 10.5 g/dL (11.5-15.3); Mean Corpuscular HGB Conc 32.7 g/dL (30.0-36.0); Mean Corpuscular Hemoglobin 28.2 pg (28.0-34.0); Mean Corpuscular Volume 86.3 fL (81-99); Mean Platelet Volume 10.3 fL (7.4-10.4); Platelet Count 218 10^3/cmm (130-400); Red Blood Count 3.72 10^6/uL (4.1-5.3); Red Cell Distribution Width 14.6 % (12.1-15.1); White Blood Count 8.2 10^3/uL (4.0-10.0)
--- NOTE | 2020-10-09 07:30 | P.DS_ITS ---
Discharge Providers DIABETES CLINICAL MANAGER Date of Admission: 10/07/20 19:55 Date of Discharge: 10/09/20 Attending Provider at Admission: Ramses Burrows MD Attending Provider at Discharge: Ramses Burrows MD Primary Care Provider: Leesa Silverio MD Diagnoses at Discharge Discharge Diagnosis (1) Normal spontaneous vaginal delivery: Status: Acute Reason for Visit Reason for Visit: INDUCTION OF LABOR Information Peripartum Data: Infant Delivery Method: Vaginal Physical Exam Narrative: EXAM NARRATIVE: Patient is doing very well with just mild lochia. She is ambulating well and tolerating a regular diet. There have been no problems or concerns. She feels as though she is ready to go home this afternoon. Const: COMMON NORMALS: no acute distress, healthy appearing and well nourished HENMT: COMMON NORMALS: moist oral mucous membranes Resp: COMMON NORMALS: normal respiratory effort, No retractions, No use of accessory muscles and clear to auscultation bilaterally AUSCULTATION: clear to auscultation bilaterally Cardio: COMMON NORMALS: regular rate and regular rhythm RATE: regular rate RHYTHM: regular rhythm GI: COMMON NORMALS: Normal to inspection, nondistended, normoactive bowel sounds present and Soft to palpation (Fundus is firm and below the umbilicus.) PALPATION: Yes Soft to palpation (Fundus is firm and below the umbilicus.) Extremity: COMMON NORMALS: full ROM, no calf tenderness and no pedal edema Neuro: COMMON NORMALS: moves all extremities, no focal motor deficits and no sensory deficits noted Psych: COMMON NORMALS: mental status grossly normal Discharge Data Data Completed and Pending: Labs from last 24 hours 10/09/20 03:00 WBC 8.2 RBC 3.72 L Hgb 10.5 L Hct 32.1 L MCV 86.3 MCH 28.2 MCHC 32.7 RDW 14.6 Plt Count 218 MPV 10.3 Vitals: Last Vital Signs Temp 97.9 F 10/09/20 05:38 Pulse 99 10/09/20 05:39 Resp 17 10/08/20 21:55 BP 131/61 10/09/20 05:39 Pulse Ox 98 10/09/20 05:38 Discharge Plan Discharge Patient Disposition: Home Condition: Stable Prescriptions: New docusate sodium [DOK] 100 mg Capsule 100 mg PO BID Qty: 60 RF: 1 ibuprofen 800 mg Tablet 800 mg PO TID Qty: 90 RF: 2 Continued PNV cmb#95-ferrous fumarate-FA [] 28 mg iron- 800 mcg Tablet 1 tab PO DAILY RF: 0 Discharge Orders: Discharge Order (Routine); Ordered 10/09/20 Ordered By: Ramses Burrows Referrals: Ramses Burrows MD [Physician] - 6 Weeks Discharge Diet: Usual diet Discharge Activity: Resume usual activity Discharge Attestations DIABETES CLINICAL MANAGER Time Spent in Discharge Care*: less than 30 min Coding Level of Care Code Acute Accounts Receivable Clerk for Chg Fwd Diagnoses Normal spontaneous vaginal delivery O80
[2020-10-09] MEDS: ibuprofen 800 mg tablet PO (09:25)
[2020-10-09] MEDS: prenatal vitamin Capsule 1 CAP PO (09:25)
[2020-10-09] MEDS: docusate sodium 100 mg Capsule PO (09:25)
[2020-10-09] MEDS: HYDROcodone-acetaminophen 5-325 mg Tablet PO (11:46)
== END 2020-10-09 17:30 | disposition home or self-care (01) | DRG 807 ==
PROVIDERS: Admitting Provider Family Medicine; PCP Family Medicine; Visit Provider Family Medicine
DX: O48.0 Post-term pregnancy (principal); Z37.0 Single live birth; Z3A.40 40 weeks gestation of pregnancy; O66.0 Obstructed labor due to shoulder dystocia
CPT/HCPCS: 12345; 36415; 59025; 59409; 85025; 85027; J2795

== ENCOUNTER → 2021-01-31 10:35 | Outpatient (BNVA) | payer BC, MEDICAID, SELFPAY | PROVIDERS: PCP Family Medicine; Visit Provider Family Medicine | DX: Z20.822 Contact with and (suspected) exposure to COVID-19 (principal) | CPT/HCPCS: 87635 ==

== ENCOUNTER 2023-10-29 16:00 | Outpatient (CLI) | payer BC, MEDICAID, SELFPAY ==
[2023-10-29 16:00] VITALS: BMI 31.6
[2023-10-29 16:14] VITALS: TEMP 36.6
[2023-10-29 16:15] VITALS: BP 131/82; PULSE 100
--- NOTE | 2023-10-29 16:22 | USR_ITS ---
PROCEDURE INFORMATION: Exam: US Biophysical Profile Without Non-Stress Test Exam date and time: 10/29/2023 4:44 PM Age: 23 years old Clinical indication: Screening exam; Encounter for screening of mother; Second trimester (14 weeks 0 days to 27 weeks 6 days); ; Additional info: Decreased movement, check placenta, bpp, dave TECHNIQUE: Imaging protocol: US biophysical profile without non-stress testing. COMPARISON: US OB >= 14 weeks fetus [id number] 10/15/2023 11:58 AM FINDINGS: heart rate: 131 bpm presentation: Transverse Amniotic fluid index: DAVE is 12.63 cm. BIOPHYSICAL PROFILE: breathing movement (BPP): 2 /2 body movement (BPP): 2 /2 tone (BPP): 2 /2 Amniotic fluid (BPP): 2 /2 Biophysical profile score (BPP): 8 /8 US/US OB lmt w/ BPP wo NST IMPRESSION: Biophysical profile score is 8 out of 8
[2023-10-29 16:23] VITALS: RESP 16
[2023-10-29 16:36] VITALS: BP 116/69; PULSE 95
[2023-10-29 16:56] VITALS: BP 114/62; PULSE 85
== END 2023-10-29 17:21 | disposition home or self-care (01) ==
LOC: OPOB 16:03 → OBGYN 16:04
PROVIDERS: PCP Family Medicine; Visit Provider Family Medicine
DX: O36.8190 Decreased fetal movements, unspecified trimester, not applicable or unspecified (principal); Z3A.00 Weeks of gestation of pregnancy not specified
CPT/HCPCS: 76815; 76819; 99211

== ENCOUNTER 2024-01-02 11:19 | Oncology outpatient (recurring) (ONCR) | payer BC, MEDICAID, SELFPAY ==
[2024-01-02] MEDS: rho(d) immune globulin 1,500 unit Syringe 1500 UNIT IM (12:34)
== END 2024-01-02 23:59 | disposition home or self-care (01) ==
LOC: ONCMED 11:19
PROVIDERS: PCP Family Medicine; Visit Provider Family Medicine
DX: O26.893 Other specified pregnancy related conditions, third trimester (principal); Z67.91 Unspecified blood type, Rh negative
CPT/HCPCS: 96372; J2790

== ENCOUNTER 2024-02-06 19:53 | Outpatient (CLI) | payer BC, MEDICAID, SELFPAY ==
[2024-02-06 20:00] VITALS: BMI 34.2
[2024-02-06 20:18] LABS: Actim Prom Negative
[2024-02-06 20:50] VITALS: BP 135/71; PULSE 90; RESP 16
[2024-02-06 20:54] VITALS: BP 135/71; PULSE 90
== END 2024-02-06 20:56 | disposition home or self-care (01) ==
LOC: OPOB 19:53 → OBGYN 19:53
PROVIDERS: PCP Family Medicine; Visit Provider Family Medicine
DX: O26.899 Other specified pregnancy related conditions, unspecified trimester (principal); Z3A.00 Weeks of gestation of pregnancy not specified; N89.8 Other specified noninflammatory disorders of vagina
CPT/HCPCS: 59025; 84112; 99211

== ENCOUNTER 2024-02-10 09:05 | Outpatient (CLI) | payer BC, MEDICAID, SELFPAY ==
[2024-02-10 09:18] VITALS: BP 121/82; PULSE 106
[2024-02-10 09:25] VITALS: BMI 33.9
[2024-02-10 09:31] VITALS: RESP 18
[2024-02-10 09:38] VITALS: BP 121/78; PULSE 97
[2024-02-10 09:58] VITALS: BP 119/76; PULSE 99
== END 2024-02-10 10:00 | disposition home or self-care (01) ==
LOC: OPOB 09:10 → OBGYN 09:12
PROVIDERS: PCP Family Medicine; Visit Provider Family Medicine
DX: O26.899 Other specified pregnancy related conditions, unspecified trimester (principal); Z3A.00 Weeks of gestation of pregnancy not specified; R10.9 Unspecified abdominal pain
CPT/HCPCS: 59025; 99211

== ENCOUNTER 2024-02-17 21:56 | Inpatient (IN) | payer BC, MEDICAID, SELFPAY ==
[2024-02-17] VITALS (8 sets, daily range): BP systolic 98–124; BP diastolic 60–80; PULSE 72–103; TEMP 36.6–36.7; BMI 34.2
[2024-02-17 21:39] LABS: Basophils % 0.1 %; Eosinophils # 0.2 10^3/uL (0.0-0.8); Hematocrit 33.9 % (36-47); Lymphocytes # 1.1 10^3/uL (0.8-4.8); Lymphocytes % 13.1 %; Mean Corpuscular Hemoglobin 27.7 pg (27-33); Mean Corpuscular Volume 83.7 fl (85-98); Mean Platelet Volume 11.2 fL (7.4-10.4); Monocytes # 0.4 10^3/uL (0.2-0.9); Monocytes % 5.2 %; Neutrophils # 6.58 10^3/uL (1.8-7.7); Neutrophils % 79.1 %; Nucleated Red Blood Cells % 0 %; Platelet Count 238 10^3/cmm (157-399); Red Blood Count 4.05 10^6/uL (3.85-5.65); Red Cell Distribution Width 13.6 % (12.1-15.1); White Blood Count 8.32 10^3/uL (3.29-11.43)
[2024-02-17] MEDS: dextrose 5%-lactated ringers 1,000 ML 125 ML IV (22:00)
[2024-02-17] MEDS: miSOPROStol 100 mcg tablet 25 MCG VAGINAL (22:05)
[2024-02-18] VITALS (60 sets, daily range): BP systolic 104–158; BP diastolic 57–92; PULSE 67–115; TEMP 37; O2SAT 98–99
[2024-02-18] MEDS: miSOPROStol 100 mcg tablet 25 MCG VAGINAL ×2 (02:58→09:09)
[2024-02-18] MEDS: lactated ringers 1,000 ML 999 ML IV (14:09)
[2024-02-18] MEDS: ROPivacaine syringe 100 MG/50 ML SYRINGE 10 MG EPIDURAL ×3 (14:57→19:50)
--- NOTE | 2024-02-18 15:14 | P.ANESASSM_ITS ---
Pre-Anesthetic Assessment Height/Weight: Height 1.68 m Weight 96.388 kg Temp Pulse BP Pulse Ox O2 Del Method 98.0 F 98 127/61 99 Room Air 02/17/24 21:26 02/18/24 15:08 02/18/24 15:08 02/18/24 15:08 02/17/24 20:48 epdiural Familial anesthetic complications: None Was Beta Eleanor taken within 24 hours: N/A Was Clonidine taken within 24 hours: N/A Social No alcohol and No tobacco Exam alert, oriented x 3, clear to auscultation bilaterally and regular rate & rhythm Airway Mallampati: Class II Dentition: full Anesthetic Plan ASA status: 2 Anesthesia: Regional (specify below) Risk of > 500 ml blood loss (7ml/kg in children): Yes, adequate IV access and fluids planned Medications/Allergies Home Medications Medication Instructions Recorded Confirmed Last Taken Type vit no.95-ferrous 1 tab PO DAILY 09/12/19 10/29/23 1 Day Ago History fumarate 28 mg-folic acid 800 mcg ~10/07/20 tablet () docusate sodium 100 mg capsule 100 mg PO BID #60 caps 10/09/20 10/29/23 Unknown Rx (DOK) ibuprofen 800 mg tablet 800 mg PO TID #90 tabs 10/09/20 10/29/23 Unknown Rx Allergies Allergy/AdvReac Type Severity Reaction Status Date / Time No Known Allergies Allergy Verified 10/08/20 07:25 Current Medications Generic Name Dose Route Start Last Admin Trade Name Freq PRN Reason Stop Dose Admin Dextrose/Lactated Ringer's 1,000 mls @ 125 mls/hr 02/17/24 21:30 02/18/24 05:38 Dextrose 5%-Lactated Ringers IV 0 mls/hr .Q8H BRUCE Infusion Lactated Ringer's 1,000 mls @ 999 mls/hr 02/18/24 14:03 02/18/24 14:09 Lactated Ringers IV 999 mls/hr .Q1H1M PRN Administration See label comments PFSH Anesthesia Family History (Updated 10/31/21 @ 08:17 by Analia Randolph LPN) Denies family history of Colon cancer Ovarian cancer Diabetes Heart disease Hypercholesteremia Breast cancer Hypertension Uterine cancer Thyroid disease Stroke Female Reproductive History : 3 Data Anesthesia 02/17/24 20:50 Short CBC 02/17/24 Range/Units 20:50 WBC 8.32 (3.29-11.43) 10^3/uL Hgb 11.20 L (11.27-16.99) g/dL Hct 33.9 L (36-47) % MCV 83.7 L (85-98) fl Plt Count 238 (157-399) 10^3/cmm Neut % (Auto) 79.1 % Neut # (Auto) 6.58 (1.8-7.7) 10^3/uL Blood Bank 02/17/24 20:50 Blood Type O Negative Rho(D) Type Rh negative Antibody Screen Positive Cardiac Studies: 2 No Data to Display
--- NOTE | 2024-02-18 15:15 | ANES.PROC ---
Anesthesia Procedures Procedure/Date: 02/18/24 Epidural: Time Out Performed: Yes Consents Signed: Procedure Consent Consent: requested by attending/covering physician, from patient, from other, risks and benefits reviewed and patient agrees to proceed Lumbar Level: L3-L4 Epidural position: sitting Epidural procedure: sterile prep of area, 1% lidocaine to numb the area, 18 g needle, negative for paresthesia passed, neg for paresthesia, test dose given, 1.5% xylocaine 1:200k epi (5 cc), 0.2% Ropivacaine bolus ml (5 cc), placed PCEA, no systemic response, sterile dressing applied, L.U.D. no apparent complications and 0.2% Ropiavacaine @ mls/hr
--- NOTE | 2024-02-18 16:40 | PM.MISC ---
Miscellaneous Note Purpose of Documentation: R sided back pain Note: L side working very well, but R side still displaying some pain of contractions, mostly in the hip and back. Administered bupivicaine 0.25% 10 cc via epidural and increased rate to 13 mls/hr. Patient had only pushed her bolus twice so encouraged her to use button more frequently since it has safety-time interval lock.
[2024-02-18] MEDS: dextrose 5%-lactated ringers 1,000 ML 125 ML IV (18:16)
--- NOTE | 2024-02-18 20:54 | PM.OPHPUD ---
Labor & Delivery H&P Update Date of Procedure: February 18, 2024 Date H&P Performed: 02/13/24 Admission Diagnosis: 23-year-old 3 para 2-0-0-2 at 39 weeks and 6 days with a history of macrosomia x 2 presenting for induction. Primary indication for procedure: 1. History of 2 previous pregnancies with macrosomic infants Planned procedure: Vaginal delivery Other information: I was unable to perform an H&P on the patient previously due to IT issues. I was not able to open the EMR icon. The patient's has otherwise been unremarkable. Her labs are as follows. Her blood type is O-. Her antibody screen is negative. She passed her glucose screen. She is rubella immune. The remainder of her infectious disease profile is within normal limits. Related Problem List Diagnoses (1) 39 weeks gestation of : A&P Assessment and plan (1) 39 weeks gestation of : I anticipate routine vaginal delivery since she has a history of having vaginal deliveries with large infants. Regardless, we are mindful of the possibility of a cephalopelvic disproportion or shoulder dystocia. We have been having difficulty obtaining consistent tocometry. As result I placed an IUPC. Shortly after placement of the IUPC the patient was noted to have multiple clots. The bleeding appears to have resolved. The OPC is acting appropriately and appears to be getting appropriate intrauterine pressures. heart tones of and reactive throughout the process. Status: Acute
[2024-02-18] MEDS: oxytocin 30 UNIT/500 ML BAG IV (21:13)
--- NOTE | 2024-02-18 23:08 | PM.DELIVERY ---
Delivery Note: Date of delivery: February 18, 2024 Pre-delivery diagnoses: 23-year-old 3 para 2-0-0-2 at 39 weeks and 6 days Post-delivery diagnoses: Status post spontaneous vaginal delivery Procedure: Spontaneous vaginal delivery Delivering Physician: Jorge Funez Estimated blood loss (mL): 125 Pre-Delivery Course: The patient presented to the hospital for induction. She was placed on Cytotec 25 mcg x 3. An amniotomy was performed about 10 hours prior to delivery. An epidural was placed. An IUPC was also placed. The placement was unremarkable. Shortly after its placement, the patient did pass multiple clots. The bleeding did eventually stop. Delivery: DELIVERY: The patient progressed to complete without difficulty. She delivered a male with a weight of 7 pounds 14 ounces with Apgars of 8, 9. The baby was delivered from the HERMANN position and placed on the mother's abdomen. The cord was then clamped and cut. There was no nuchal cord. The cord was wrapped around the baby's foot. There was no meconium. The placenta and 3 vessel cord were delivered intact shortly thereafter. The perineum and vaginal vault were carefully examined. No lacerations were noted. Both the mother and the baby were in stable condition. Post-Delivery Status: Good History History History 3 Term 3 Miscarriages/Ectopic Living Children 3 A&P Assessment and plan (1) Spontaneous vaginal delivery: I anticipate routine care. Because of the bleeding noted after the placement of the IUPC the nurse will pay closer attention to bleeding and notify me with any concerns. Coding Level of Care Code Acute Code for Chg Fwd Diagnoses Spontaneous vaginal delivery O80
[2024-02-19] VITALS (15 sets, daily range): BP systolic 101–128; BP diastolic 55–74; PULSE 77–112; RESP 17; TEMP 35.6–37.1
[2024-02-19] MEDS: HYDROcodone-acetaminophen 5-325 mg Tablet PO ×2 (01:44→19:23)
[2024-02-19] MEDS: docusate sodium 100 mg Capsule PO ×2 (08:46→21:10)
[2024-02-19] MEDS: ibuprofen 800 mg tablet PO ×3 (08:46→21:10)
[2024-02-19] MEDS: PRENATAL VIT NO.130/IRON/FOLIC 1 EACH TABLET PO (08:46)
[2024-02-19 11:03] LABS: Mean Corpuscular HGB Conc 32.9 g/dL (30-55); Mean Corpuscular Hemoglobin 27.7 pg (27-33); Mean Corpuscular Volume 84.2 fl (85-98); Mean Platelet Volume 10.7 fL (7.4-10.4); Platelet Count 197 10^3/cmm (157-399); Red Blood Count 3.68 10^6/uL (3.85-5.65); Red Cell Distribution Width 13.6 % (12.1-15.1); White Blood Count 12.95 10^3/uL (3.29-11.43)
--- NOTE | 2024-02-19 13:02 | ANE.PACU2 ---
Inpatient post-anesthesia follow up: Airway intact: Yes Vital signs: Temperature 96.1 F Pulse Rate 92 Respiratory Rate Blood Pressure 121/58 Pulse Oximetry 99 Oxygen Delivery Me thod Room Air Oxygen Flow Rate Fraction of Inspir ed Oxygen Hydration adequate: Yes Nausea and vomiting: No Pain level: 1 Mental status: Baseline Epidural Start/End: Epidural Start Date: 02/18/24 Epidural Start Time: 14:58 Epidural End Date: 02/18/24 Epidural End Time: 22:58
[2024-02-20 06:32] VITALS: BP 108/62; PULSE 86
[2024-02-20] MEDS: docusate sodium 100 mg Capsule PO (09:31)
[2024-02-20] MEDS: ibuprofen 800 mg tablet PO (09:31)
[2024-02-20] MEDS: PRENATAL VIT NO.130/IRON/FOLIC 1 EACH TABLET PO (09:31)
--- NOTE | 2024-02-20 10:36 | P.DS_ITS ---
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 She was placed on cytotec. An epidural was given. An amniotomy was performed. Labor was augmented with pitocin. She had an unremarkable delivery of a healthy infant. Her course was wnl. Her bleeding was wnl. Her pain was well controlled. She breastfed well. Information Peripartum Data: Delivery Method: Vaginal Physical Exam Narrative: Fundus below the umbilicus Chest: COMMONS NORMALS: normal inspection of the chest Cardio: COMMON NORMALS: regular rate and regular rhythm RATE: regular rate RHYTHM: regular rhythm GI: INSPECTION: Yes normal to inspection Extremity: COMMON NORMALS: normal to inspection GENERAL: Yes edema (Trace) Psych: COMMON NORMALS: mental status grossly normal Skin: COMMON NORMALS: no rashes or lesions noted GENERAL SKIN EXAM: no rashes or lesions noted Urinary Catheter Management: Awan: Cath Placed During This Visit: yes Reason for Continuing Indwelling Catheter: Required Immobilization for Trauma or Surgery or Anesthesia Urinary Catheter Date of Insertion: 02/18/24 Urinary Catheter Time of Insertion: 15:46 History History History 2 3 Term 3 Miscarriages/Ectopic Living Children 3 Discharge Data Studies Completed and Pending Laboratory Results WBC 12.95 10^3/uL (3.29-11.43) H 02/19/24 10:41 RBC 3.68 10^6/uL (3.85-5.65) L 02/19/24 10:41 Hgb 10.20 g/dL (11.27-16.99) L 02/19/24 10:41 Hct 31.0 % (36-47) L 02/19/24 10:41 MCV 84.2 fl (85-98) L 02/19/24 10:41 MCH 27.7 pg (27-33) 02/19/24 10:41 MCHC 32.9 g/dL (30-55) 02/19/24 10:41 RDW 13.6 % (12.1-15.1) 02/19/24 10:41 Plt Count 197 10^3/cmm (157-399) 02/19/24 10:41 MPV 10.7 fL (7.4-10.4) H 02/19/24 10:41 Neut % (Auto) 79.1 % 02/17/24 20:50 Lymph % (Auto) 13.1 % 02/17/24 20:50 Ralls % (Auto) 5.2 % 02/17/24 20:50 Eos % (Auto) 2.0 % 02/17/24 20:50 Baso % (Auto) 0.1 % 02/17/24 20:50 Neut # (Auto) 6.58 10^3/uL (1.8-7.7) 02/17/24 20:50 Lymph # (Auto) 1.1 10^3/uL (0.8-4.8) 02/17/24 20:50 Ralls # (Auto) 0.4 10^3/uL (0.2-0.9) 02/17/24 20:50 Eos # (Auto) 0.2 10^3/uL (0.0-0.8) 02/17/24 20:50 Baso # (Auto) 0.0 10^3/uL (0.0-0.1) 02/17/24 20:50 Nucleated RBC % (auto) 0 % 02/17/24 20:50 Nucleated RBCs # 0.0 /100WBC 02/17/24 20:50 Blood Type O Negative 02/17/24 20:50 Rho(D) Type Rh negative 02/17/24 20:50 Antibody Screen Positive 02/17/24 20:50 Antibody Identification Non-Specific Antibody Reation 02/17/24 20:50 Screen Negative (Negative) 02/19/24 10:41 Vitals Last Vital Signs Temp 96.1 F L 02/19/24 03:47 Pulse 86 02/20/24 06:32 Resp 17 02/19/24 15:11 BP 108/62 02/20/24 06:32 Pulse Ox 99 02/18/24 15:43 O2 Del Method Room Air 02/17/24 20:48 Results Labs OB ([facility]): 2 Obstetrics US 10/09/19 Obstetrics US/Biophysical Profile Blood Type O Negative 02/17/24 Antibody Screen Positive 02/17/24 Hct 31.0 % (36-47) L 02/19/24 Hgb 10.20 g/dL (11.27-16.99) L 02/19/24 Rho(D) Type Rh negative 02/17/24 Plt Count 197 10^3/cmm (157-399) 02/19/24 Hep Bs Antibody < 3.5 (11.5-1000) L 10/02/23 Rubella IgG Antibody 42.0 IU/mL (0.0-10.0) H 10/02/23 Uric Acid 5.8 mg/dL (2.4-5.7) H 10/09/19 VZV IgG Antibody 322.00 index 10/02/23 Ser , Semi-Qnt 64161.00 mIU/mL 03/25/19 Urine Opiates Screen Negative ng/mL (Negative) 10/22/19 Ur Barbiturates Screen Negative ng/mL (Negative) 10/22/19 Ur Phencyclidine Scrn Negative ng/mL (Negative) 10/22/19 Ur Amphetamines Screen Negative ng/mL (Negative) 10/22/19 U Benzodiazepines Scrn Negative ng/mL (Negative) 10/22/19 Urine Cocaine Screen Positive ng/mL (Negative) H 10/22/19 U Marijuana (THC) Screen Negative ng/mL (Negative) 10/22/19 Micro Urine Specimen 11/27/19 Discharge Plan Discharge Patient Disposition: Home Condition: Stable Prescriptions: New ibuprofen 800 mg Tablet 800 mg PO TID Qty: 45 0RF Continued PNV cmb#95-ferrous fumarate-FA [] 28 mg iron- 800 mcg Tablet 1 tab PO DAILY Discontinued ibuprofen 800 mg Tablet 800 mg PO TID Qty: 90 2RF docusate sodium [DOK] 100 mg Capsule 100 mg PO BID Qty: 60 1RF Discharge Orders: Discharge Order (Routine); Ordered 02/20/24 Ordered By: Jorge Funez Referrals: Jorge Funez MD [Primary Care Provider] - 04/01/24 10:20 am (Patient to see Dr. 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
--- NOTE | 2024-02-20 10:42 | P.PN_ITS ---
SAILING INSTRUCTOR Subjective 2 Subjective: Interval history: This note corresponds to 02/18. The patient is doing well. her bleeding is well controlled. Her pain is minimal. She is well. Labor: Station: 0 Amniotic Membrane Status: Ruptured Monitor Mode: Internal (IUPC) Contraction Pattern: Irregular Status: Category I Vitals/I&O/Wt Last Vital Signs Temp 96.1 F L 02/19/24 03:47 Pulse 86 02/20/24 06:32 Resp 17 02/19/24 15:11 BP 108/62 02/20/24 06:32 Pulse Ox 99 02/18/24 15:43 O2 Del Method Room Air 02/17/24 20:48 02/19/24 02/20/24 02/20/24 22:59 06:59 14:59 Intake Total 0 / 0 Balance 0 / 0 Physical Exam 2 Narrative: Fundus below the umbilicus Const: COMMON NORMALS: patient oriented x3 and alert HENMT: COMMON NORMALS: moist oral mucous membranes HEAD & SCALP: normal to inspection Chest: COMMONS NORMALS: normal inspection of the chest Cardio: COMMON NORMALS: regular rate and regular rhythm RATE: regular rate RHYTHM: regular rhythm GI: INSPECTION: Yes normal to inspection Extremity: COMMON NORMALS: normal to inspection GENERAL: Yes edema (Trace) Neuro: COMMON NORMALS: patient oriented x3, moves all extremities and no sensory deficits noted SENSORIUM/ORIENTATION: Yes alert Psych: COMMON NORMALS: mental status grossly normal Skin: COMMON NORMALS: no rashes or lesions noted GENERAL SKIN EXAM: no rashes or lesions noted Urinary Catheter Management: Awan: Cath Placed During This Visit: yes Reason for Continuing Indwelling Catheter: Required Immobilization for Trauma or Surgery or Anesthesia Urinary Catheter Date of Insertion: 02/18/24 Urinary Catheter Time of Insertion: 15:46 Data 02/19/24 10:41 A&P Assessment and plan (1) Spontaneous vaginal delivery: Continue routine care. (2) 39 weeks gestation of : Attestations 2 Medical Necessity Statement*: Routine care. Coding Level of Care Code Acute Code for Chg Fwd Diagnoses Spontaneous vaginal delivery O80 39 weeks gestation of Z3A.39
[2024-02-20 11:09] VITALS: BP 131/69; PULSE 83
[2024-02-20 11:17] VITALS: BP 131/69; PULSE 83; RESP 17; TEMP 36.6; O2SAT 97
== END 2024-02-20 11:17 | disposition home or self-care (01) | DRG 807 ==
LOC: OPOB 21:57 → OBGYN 21:57
PROVIDERS: Admitting Provider Family Medicine; PCP Family Medicine; Visit Provider Family Medicine
DX: O67.8 Other intrapartum hemorrhage (principal); Z37.0 Single live birth; O69.89X0 Labor and delivery complicated by other cord complications, not applicable or unspecified; Z3A.39 39 weeks gestation of pregnancy
CPT/HCPCS: 36415; 36430; 51702; 59025; 59409; 85025; 85027; 85460; 86850; 86870; 86900; 90384; J2590; J2795; J7120; J7121

== ENCOUNTER 2024-07-31 18:46 | Emergency (ER) | payer BC, MEDICAID, SELFPAY ==
--- NOTE | 2024-07-31 18:49 | XRR_ITS ---
PROCEDURE INFORMATION: Exam: XR Right Ankle Exam date and time: 07/31/2024 7:07 PM Age: 23 years old Clinical indication: Injury or trauma; Fall; Blunt trauma; Patient HX: PT. Was walking up a hill yesterday and fell down the hill injuring her right ankle. Ankle has obvious swelling. TECHNIQUE: Imaging protocol: Radiologic exam of the right ankle. Views: 3 or more views. COMPARISON: [place] [id number] 02/04/2020 15:00 FINDINGS: Bones/joints: The alignment of the joints is anatomic and the ankle mortise is maintained. There is no evidence of acute fracture. Soft tissues: There is soft tissue swelling adjacent to the lateral malleolus. No radiopaque foreign body is seen. XR/XR ankle RT min 3V* [id number] IMPRESSION: 1. Right ankle soft tissue swelling. 2. No acute fracture or dislocation.
[2024-07-31 18:59] VITALS: BP 130/79; PULSE 94; RESP 20; TEMP 36.6; O2SAT 98; BMI 30.9
--- NOTE | 2024-07-31 19:06 | W.ED.EXTPRO ---
HPI - Extremity Problem General: Chief complaint: Extremity Injury, Lower Stated complaint: R ankle injury Time Seen by Provider: 07/31/24 18:53 Source: patient Mode of arrival: ambulatory Limitations: no limitations History of Present Illness: 23-year-old female states she was climbing a hill yesterday and tripped and fell states she rolled her right ankle states she has been having some right ankle pain since then. She had some swelling to the lateral portion of her ankle as well has been able to bear weight she denies any knee pain or any other injuries. Associated symptoms: Deny chest pain, fever(s) or rash Related Data Home Medications Medication Instructions Recorded Confirmed vit no.95-ferrous 1 tab PO DAILY 09/12/19 02/20/24 fumarate 28 mg-folic acid 800 mcg tablet () Previous Rx's Medication Instructions Recorded ibuprofen 800 mg tablet 800 mg PO TID #45 tabs 02/20/24 Allergies Allergy/AdvReac Type Severity Reaction Status Date / Time No Known Allergies Allergy Verified 10/08/20 07:25 Review of Systems Const: Denies: fever(s), chills, body aches or change in appetite ENMT: Denies: throat pain or dental pain Card: Denies: chest pain Resp: Denies: dyspnea GI: Denies: abdominal pain, nausea, vomiting or diarrhea Musc: Reports: extremity pain; Denies: neck pain or back pain Skin/Breast: Denies: rash Neuro: Denies: headache(s) [facility] PFSH: Medical History Macrosomia Family History (Updated 10/31/21 @ 08:17 by Analia Randolph LPN) Denies family history of Colon cancer Ovarian cancer Diabetes Heart disease Hypercholesteremia Breast cancer Hypertension Uterine cancer Thyroid disease Stroke Physical Exam Const: COMMON NORMALS: no acute distress, patient oriented x3 and healthy appearing HENMT: COMMON NORMALS: normocephalic and atraumatic HEAD & SCALP: normocephalic and atraumatic Neck/C-Spine: COMMON NORMALS: full ROM and supple Chest: COMMONS NORMALS: normal inspection of the chest Resp: COMMON NORMALS: normal respiratory effort Cardio: COMMON NORMALS: regular rate and No murmurs present (Cardio) RATE: regular rate Extremity: COMMON NORMALS: full ROM NARRATIVE EXTREMITY EXAM: Swelling noted to right lateral ankle along with slight tenderness Neuro: COMMON NORMALS: patient oriented x3, moves all extremities and no focal motor deficits Psych: COMMON NORMALS: mental status grossly normal, Normal thought process present and cooperative THOUGHT PROCESS: Normal thought process present Skin: COMMON NORMALS: no rashes or lesions noted and no wounds GENERAL SKIN EXAM: no rashes or lesions noted Course Vital Signs: Vital signs: Vital Signs Temperature 98 F 07/31/24 18:59 Pulse Rate 67 07/31/24 19:40 Respiratory Rate 20 H 07/31/24 18:59 Blood Pressure 134/67 07/31/24 19:40 Pulse Oximetry 98 07/31/24 19:40 MDM - Extremity (Nontraumatic) Medical Decision Making Patient presents here with an ankle sprain x-ray shows no fracture she is to elevate compress ice follow-up with PCP she understands agrees to plan. Weight-bear as tolerated. Medical Records I reviewed the patient's medical records. XR interpretation done by ED provider, pending radiology final review ED provider radiology interpretation(s): X-ray right ankle no acute fracture Discharge Plan Discharge Patient Disposition: Home Clinical Impression: Ankle sprain and strain Condition: Stable Prescriptions: No Action PNV cmb#95-ferrous fumarate-FA [] 28 mg iron- 800 mcg Tablet 1 tab PO DAILY ibuprofen 800 mg Tablet 800 mg PO TID Qty: 45 0RF Discharge Orders: Discharge ED (Routine); Ordered 07/31/24 Ordered By: Carlota Marley Referrals: Jorge Funez MD [Primary Care Provider] - 4-7 days Discharge Diet: Advance as tolerated Discharge Activity: Resume usual activity Patient Instructions: Ankle Sprain (ED) Coding Level of Care Code ED Automotive Service Director for Jason Knapp
[2024-07-31 19:40] VITALS: BP 134/67; PULSE 67; O2SAT 98
== END 2024-07-31 19:41 | disposition home or self-care (01) ==
PROVIDERS: Emergency Provider Emergency Medicine; PCP Family Medicine
DX: S93.401A Sprain of unspecified ligament of right ankle, initial encounter (principal); W01.0XXA Fall on same level from slipping, tripping and stumbling without subsequent striking against object, initial encounter
CPT/HCPCS: 73610; 99283

== ENCOUNTER 2024-12-26 08:20 | Emergency (ER) | payer BC, MEDICAID, SELFPAY ==
--- NOTE | 2024-12-26 08:22 | XRR_ITS ---
PROCEDURE INFORMATION: Exam: XR Chest Exam date and time: 12/26/2024 8:44 AM Age: 24 years old Clinical indication: Shortness of breath; Additional info: SOB TECHNIQUE: Imaging protocol: Radiologic exam of the chest. Views: 1 view. COMPARISON: CT angio chest PE protcl [id number] 10/09/2019 4:24 PM FINDINGS: Lungs: Unremarkable. No consolidation. Pleural spaces: Unremarkable. No pleural effusion. No pneumothorax. Heart/Mediastinum: Unremarkable. No cardiomegaly. Bones/joints: Unremarkable. XR/XR chest 1V portable [id number] IMPRESSION: No acute findings.
[2024-12-26 08:32] VITALS: BP 132/73; PULSE 111; RESP 17; TEMP 37; O2SAT 99; BMI 29.0
--- NOTE | 2024-12-26 08:34 | CTR_ITS ---
PROCEDURE INFORMATION: Exam: CT Neck With Contrast Exam date and time: 12/26/2024 9:03 AM Age: 24 years old Clinical indication: Painful swallowing and throat pain; Additional info: Thorat pain TECHNIQUE: Imaging protocol: Computed tomography of the neck with contrast. Radiation optimization: All CT scans at this facility use at least one of these dose optimization techniques: automated exposure control; mA and/or kV adjustment per patient size (includes targeted exams where dose is matched to clinical indication); or iterative reconstruction. Contrast material: OMNIPAQUE 350; Contrast volume: 80 ml; Contrast route: INTRA-ARTERIAL (ARTERIAL); COMPARISON: US soft tissue head neck [id number] 08/06/2018 3:45 PM RADIATION DOSE METRICS: Total DLP (mGy-cm): 246.2 FINDINGS: Salivary glands: Normal. Glands are normal in size. Pharynx: There is mild enlargement and increased enhancement of the palatine and lingual tonsils, adenoids and tubal tonsils. No peritonsillar abscess. Larynx: The epiglottis is within normal limits. Thyroid: Normal. No enlarged or calcified nodules. Trachea: Visualized trachea is unremarkable. Lungs: Unremarkable as visualized. Lymph nodes: There are borderline prominent bilateral jugulodigastric lymph nodes which are likely reactive in nature. Bones/joints: Unremarkable. No acute fracture. Soft tissues: Unremarkable. No significant soft tissue swelling. CT/CT neck w con* [id number] IMPRESSION: 1. Mild enlargement and increased enhancement of the lymphoid tissue of Waldeyer's ring, likely owing to acute pharyngitis 2. No evidence of peritonsillar abscess
--- NOTE | 2024-12-26 08:39 | W.ED.URI ---
HPI - URI/Sore Throat General: Chief Complaint: Upper Respiratory Infection Stated Complaint: throat feels swollen, sob Time Seen by Provider: 12/26/24 08:22 Source: patient Mode of arrival: ambulatory Limitations: no limitations History of Present Illness: 24-year-old female states that starting last night she is having sore throat when she woke up this morning her throat was swollen having worsening pain. States it is very painful to swallow she denies any shortness of breath denies any vomiting or diarrhea Associated symptoms: Deny abdominal pain, chills, chest pain, diarrhea, fever(s), headache(s), nausea or vomiting Related Data Home Medications ?Medication ?Instructions ?Recorded ?Confirmed vit no.95-ferrous 1 tab PO DAILY 09/12/19 02/20/24 fumarate 28 mg-folic acid 800 mcg tablet () Previous Rx's ?Medication ?Instructions ?Recorded ibuprofen 800 mg tablet 800 mg PO TID #45 tabs 02/20/24 amoxicillin 875 mg tablet 875 mg PO BID #14 tabs 12/26/24 Allergies Allergy/AdvReac Type Severity Reaction Status Date / Time No Known Allergies Allergy Verified 10/08/20 07:25 Review of Systems Const: Denies: fever(s), chills, body aches or change in appetite ENMT: Reports: throat pain; Denies: dental pain Card: Denies: chest pain Resp: Denies: dyspnea GI: Denies: abdominal pain, nausea, vomiting or diarrhea Musc: Denies: neck pain or back pain Skin/Breast: Denies: rash Neuro: Denies: headache(s) PFSH ED PFSH: Medical History Macrosomia Family History Denies family history of Colon cancer Ovarian cancer Diabetes Heart disease Hypercholesteremia Breast cancer Hypertension Uterine cancer Thyroid disease Stroke Physical Exam Const: COMMON NORMALS: no acute distress, patient oriented x3 and healthy appearing HENMT: COMMON NORMALS: normocephalic and atraumatic HEAD & SCALP: normocephalic and atraumatic OTHER: Swelling noted posterior pharynx handling secretions well Neck/C-Spine: COMMON NORMALS: full ROM and supple Chest: COMMONS NORMALS: normal inspection of the chest and normal palpation of entire chest wall Resp: COMMON NORMALS: normal respiratory effort, No retractions, No use of accessory muscles and clear to auscultation bilaterally AUSCULTATION: clear to auscultation bilaterally Cardio: COMMON NORMALS: regular rate, regular rhythm and No murmurs present (Cardio) RATE: regular rate RHYTHM: regular rhythm Extremity: COMMON NORMALS: normal to inspection and full ROM Neuro: COMMON NORMALS: patient oriented x3, moves all extremities and no focal motor deficits Psych: COMMON NORMALS: mental status grossly normal, Normal thought process present and cooperative THOUGHT PROCESS: Normal thought process present Skin: COMMON NORMALS: no rashes or lesions noted and no wounds GENERAL SKIN EXAM: no rashes or lesions noted Course Vital Signs: Vital signs: Vital Signs Temperature 98.6 F 12/26/24 08:32 Pulse Rate 111 H 12/26/24 08:32 Respiratory Rate 17 12/26/24 08:32 Blood Pressure 132/73 12/26/24 08:32 Pulse Oximetry 99 12/26/24 08:32 Oxygen Delivery Me thod Room Air 12/26/24 08:32 MDM - URI/Sore Throat Medical Decision Making Patient presents here with strep throat CT shows no signs of abscess we will place her on amoxicillin she stable for discharge follow-up PCP return if worsening. Medical Records I reviewed the patient's medical records. Lab Data I reviewed the patient's lab results. Radiology Impressions Chest X-Ray 12/26/24 08:22 IMPRESSION: No acute findings. Neck CT 12/26/24 08:34 IMPRESSION: 1. Mild enlargement and increased enhancement of the lymphoid tissue of Waldeyer's ring, likely owing to acute pharyngitis 2. No evidence of peritonsillar abscess Laboratory Results Monoscreen Negative (Negative) 12/26/24 08:50 Group A Strep Rapid Positive (Negative) H 12/26/24 08:49 All radiology interpretation(s) finalized by discharge EKG Data EKG 1: I personally reviewed and interpreted this EKG as follows: EKG interpretation date: 12/26/24 EKG interpretation time: 08:53 Interpretation: sinus tach hr [address] elevation qrs 84 qtc 370 Discharge Plan Discharge Patient Disposition: Home Clinical Impression: Acute streptococcal pharyngitis Condition: Stable Prescriptions: New amoxicillin 875 mg tablet 875 mg PO BID Qty: 14 0RF No Action PNV cmb#95-ferrous fumarate-FA [] 28 mg iron- 800 mcg Tablet 1 tab PO DAILY ibuprofen 800 mg Tablet 800 mg PO TID Qty: 45 0RF Discharge Orders: Discharge ED (Routine); Ordered 12/26/24 Ordered By: Carlota Marley Referrals: Jorge Funez MD [Primary Care Provider, Family Practice] Discharge Diet: Advance as tolerated Discharge Activity: Resume usual activity Patient Instructions: Strep Throat (ED) Print Language: Cypriot Coding Level of Care Code ED Senior Analytic Consultant for Jason Knapp
[2024-12-26] MEDS: ketorolac 30 mg/mL INJ IVP (08:43)
[2024-12-26] MEDS: dexamethasone 10 mg/mL INJ IVP (08:44)
[2024-12-26] MEDS: clindamycin 600 MG/50 ML PREMIX 100 MG IV (08:45)
--- NOTE | 2024-12-26 08:53 | ECG_ITS ---
[facility]: 2024-12-26 Pat Name: Kacie Howard Department: Room: Gender: Female [employer]: : 2000 Requested By: Carlota Marley Order Number: [id number] Reading MD: WENDY LERNER Measurements Intervals [place] Rate: 106 P: 59 TX: 167 QRS: 61 QRSD: 84 T: 43 QT: 308 QTc: 409 Interpretive Statements SINUS TACHYCARDIA ABNORMAL RHYTHM ECG Compared to ECG 10/09/2019 16:29:07 Sinus rhythm no longer present Electronically Signed On 12-27-2024 19:04:56 CDT by WENDY LERNER [email or web address]
[2024-12-26 09:08] LABS: Rapid Strep A Test Positive (Negative)
[2024-12-26 09:09] LABS: Monoscreen Negative (Negative)
[2024-12-26] MEDS: iohexol 350 mg/mL 500 mL Btl (per mL) IV (09:11)
[2024-12-26 09:30] VITALS: BP 128/78; PULSE 97; O2SAT 97
[2024-12-26 09:52] VITALS: BP 128/78; PULSE 97; O2SAT 97
== END 2024-12-26 09:53 | disposition home or self-care (01) ==
PROVIDERS: Emergency Provider Emergency Medicine; PCP Family Medicine
DX: J02.0 Streptococcal pharyngitis (principal)
CPT/HCPCS: 70491; 71045; 86308; 87880; 93005; 96374; 96375; 99285; J1100; J1885; J3490